=== PATIENT | male | born 1995 | race African-American/Black ===

== ENCOUNTER 2019-05-26 15:52 | Emergency (ER) | payer SELFPAY ==
--- NOTE | ~2019-05-26 | XR_ITS ---
EXAMINATION: XR abdomen obstructive series DATE: 05/26/2019 16:45 INDICATION: Lumen pain, fever and constipation TECHNIQUE: Supine and upright views of the abdomen. FINDINGS: No prior studies for comparison. The visualized lung parenchyma is normal.. There is a nonobstructive bowel gas pattern. Gas and stool are seen throughout the colon to the level of the rectum. There is no free air. IMPRESSION: 1. No acute abdominal abnormality. Reviewed, dictated and finalized at location [facility]
[2019-05-26 15:57] VITALS: BP 165/79; PULSE 79; RESP 16; TEMP 37.3; O2SAT 100
--- NOTE | 2019-05-26 16:34 | ED.ABDPAIN ---
HPI - Abdominal Pain General Chief Complaint: Abdominal Pain Stated Complaint: abdominal pain/hot/cold Time Seen by Provider: 05/26/19 16:28 Source: patient and RN notes reviewed Mode of arrival: ambulatory Limitations: no limitations History of Present Illness HPI narrative: Patient presents today complaining of mid abdominal pain. Reports he became sick 5 days ago with nausea and fever. Both of these symptoms have completely resolved. 4 days ago, patient started experiencing upper/mid abdominal pain that comes and goes, as well as some constipation. He has had 1 stool in the last 4 days and it was at least 2 days ago. He denies any blood or mucus in the stool. He currently rates his abdominal pain 5/10 and has been taking NyQuil, Tums, and ibuprofen. MD elicited complaint: abdominal pain Related Data Allergies Allergy/AdvReac Type Severity Reaction Status Date / Time No Known Allergies Allergy Mild Verified 05/09/12 10:41 Review of Systems Review of Systems: Narrative: CONSTITUTIONAL: Denies body aches, fever, chills, or sweats. EYES: Denies visual changes, redness, or discharge. ENT: Denies rhinorrhea, congestion, sore throat, or otalgia. CARDIOVASCULAR: Denies chest pain, palpitations, or edema. RESPIRATORY: Denies cough or dyspnea. GASTROINTESTINAL: Denies nausea, vomiting, or diarrhea.+ Abdominal pain, constipation GENITOURINARY: Denies dysuria or hematuria. SKIN: Denies rash, itching, or wounds. MUSCULOSKELETAL: Denies back pain, joint pain, or myalgia. NEUROLOGIC: Denies headache, numbness, tingling, or weakness. PSYCH: Denies depression or anxiety. [facility] Social History Social History Alcohol intake: never Comments At time of signature, I have reviewed and agree with nursing past medical, surgical, social and family history unless otherwise noted. Please see nursing chart for further information. There is no relevant family history pertinent to the presenting complaint Exam Narrative: Exam Narrative: GENERAL: Well-appearing, well-nourished, and in no acute distress. HEAD: Normocephalic, atraumatic. EYES: EOMI. No redness or drainage. Conjunctivae normal. ENT: Mucous membranes pink and moist. NECK: Normal AROM. Supple. No lymphadenopathy. CHEST: No respiratory distress. Clear to auscultation. HEART: Regular rate and rhythm. No murmur appreciated. Normal peripheral pulses. ABDOMEN: Soft, nondistended, normal active bowel sounds.+ Periumbilical tenderness, left lower quadrant tenderness MUSCULOSKELETAL: No bony tenderness. EXTREMITIES: Normal range of motion. No edema. SKIN: Warm, dry, no rash. NEURO: No focal deficits. Alert and oriented x3. Gait steady. PSYCH: Normal affect. No signs of depression or anxiety. Course Vital Signs Vital signs: Vital Signs Temperature 99.2 F 05/26/19 15:57 Pulse Rate 79 05/26/19 15:57 Respiratory Rate 16 05/26/19 15:57 Blood Pressure 165/79 H 05/26/19 15:57 Pulse Oximetry 100 05/26/19 15:57 Temperature 99.2 F 05/26/19 15:57 Pulse Rate 79 05/26/19 15:57 Respiratory Rate 16 05/26/19 15:57 Blood Pressure 165/79 H 05/26/19 15:57 Pulse Oximetry 100 05/26/19 15:57 Reviewed. Pt has been instructed to follow up with his PCP regarding his elevated blood pressure today. MDM - Abdominal Pain Differential Diagnosis Differential diagnosis: Likely abdominal pain, constipation, diverticulitis and other (Gastritis) Imaging Data Radiologist's impression: ITS Impressions Abdomen X-Ray 05/26/19 16:47 IMPRESSION: 1. No acute abdominal abnormality. The visualized lung parenchyma is normal. There is a nonobstructive bowel gas pattern. Gas and stool are seen throughout the colon to the level of the rectum. There is no free air. Critical Care Time Critical Care Time Critical Care Time: No Discharge Plan Discharge Clinical Impression: Constipation Qualifiers: Constipation type: unspecified constipation type Qualif
== END 2019-05-26 17:21 | disposition home or self-care (01) ==
PROVIDERS: Emergency Provider Nurse Practitioner
DX: K59.00 Constipation, unspecified (principal)
CPT/HCPCS: 74019; 99203; G0463

== ENCOUNTER 2025-04-17 13:41 | Emergency (ER) | payer SELFPAY ==
--- NOTE | 2025-04-17 13:42 | ED.LOWEXIN ---
HPI - Extremity Injury (Lower) General Chief Complaint: Extremity Injury, Lower Stated Complaint: L Foot Pain Time Seen by Provider: 04/17/25 13:42 Source: patient Mode of arrival: ambulatory Limitations: no limitations History of Present Illness HPI Narrative: Patient is a 29-year-old male who presents with multiple complaints. Patient states over the past month he has had upper respiratory symptoms with intermittent shortness of breath and chest heaviness when lying down. Patient states that has improved today. Patient also has issues with constipation, abdominal pain and bloating. Today he has sharp stabbing abdominal pain that relieved when having diarrhea x2. Patient also reports significant swelling to left ankle that he noticed when putting his shoes on. 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 Denies any significant pain the ankles or calfs. Patient reports he wears mid calf high socks and has noticed an indention. patient has not seen a doctor in several months to year. denies any chest pain or shortness of breath at this time. Related Data Home Medications ?Medication ?Instructions ?Recorded ?Confirmed ?Last Taken ?Type valacyclovir 500 mg tablet mg 04/17/25 Unknown History Allergies Allergy/AdvReac Type Severity Reaction Status Date / Time No Known Allergies Allergy Mild Verified 05/09/12 10:41 Review of Systems Review of Systems: All systems reviewed & are unremarkable except as noted in HPI and below Constitutional: Constitutional: Denies body ache(s), Denies chills, Denies fatigue, Denies fever(s), Denies headache(s), Denies malaise and Denies weakness Eyes: Eyes: Denies blurry vision, Denies irritation and Denies loss of vision ENT: Denies otalgia, Denies headache(s), Reports nasal congestion, Denies nasal discharge, Denies sinus pain and Denies sore throat Cardiovascular: Cardiovascular: Denies chest pain, Denies irregular heart rhythm and Denies dyspnea Respiratory: Respiratory: Reports cough and Denies dyspnea Gastrointestinal: Gastrointestinal: Reports abdominal pain, Denies melena, Denies hematochezia, Reports diarrhea, Denies nausea and Denies vomiting Musculoskeletal: Musculoskeletal: Denies back pain, Denies myalgias, Denies arthralgias and Reports joint swelling Integumentary/Breasts: Skin/Breast: Denies pruritus and Denies rash Neurologic: Denies headache(s), Denies loss of vision and Denies weakness Psychiatric: Psychiatric: Reports no additional psychiatric complaints Endocrine: Endocrine: Denies fatigue PMFSH Social History Social History Alcohol intake: never Comments At time of signature, agree with nursing past medical, surgical, social and family history. There is no relevant family history pertinent to the presenting complaint. Exam Const: General: cooperative, healthy appearing, comfortable, no acute distress and well nourished Nutritional Appearance: well nourished Orientation/consciousness: patient oriented x3 Limitations: no limitations HENMT: Head: normal to inspection, normocephalic and atraumatic Ears: hearing grossly normal bilaterally and external ears normal Face/Nose/Sinus: Normal external nose present, normal facial exam and face symmetric Face and sinus: normal facial exam and face symmetric Mouth: Yes lip normal Eyes: General: appearance normal, both eyes and all related structures Alignment and Position: alignment normal and position normal Periorbital: periorbital findings normal Eyelids: eyelids normal Pupils: Equal, round and reactive pupils present EOM: EOMs intact bilaterally Neck: Neck: normal visual inspection, full ROM and supple Chest: Chest palpation & inspection: normal inspection of the chest Resp: Effort & Inspection: normal respiratory effort and able to speak in complete sentences Auscultation: clear to auscultation bilaterally Cardio: Rate: tachycardic Rhythm: regular rhythm Heart sounds: S1 normal heart sound present and S2 normal heart sound present GI: Inspection: normal to inspection GI Palp: No abdominal tenderness and Yes Soft to palpation Skin: General skin exam: normal color and no rashes or lesions noted Neuro: General: patient oriented x3 and moves all extremities Cranial nerves: Yes Equal, round and reactive pupils present Speech: normal speech Gait exam (Neuro): Normal gait present Extrem: General: normal to inspection, full ROM and no edema Right lower extremity: lower leg Details: pitting edema Details: 1+, ankle Details: edema Details: pitting and 1+ and foot Details: normal capillary refill, toes with normal ROM, edema and vascular exam Details: dorsalis pedis pulse present Left lower extremity: lower leg Details: pitting edema Details: 3+, ankle Details: pitting edema Details: pitting and 3+ and normal ROM; no tenderness and foot Details: normal capillary refill, toes with normal ROM, edema and vascular exam Details: dorsalis pedis pulse present and normal capillary refill; no tenderness Psych: Appearance: grossly normal and well kempt Mental Status: mental status grossly normal Speech and movement: Normal speech and movement present Affect: normal affect Attitude: cooperative Thought process: Normal thought process present Course Course Emergency Course: patient being transferred to [facility] for further workup and evaluation. Patient needs lab work and potential imaging to determine cause of significant lower extremity edema Portions of this record may have been created with voice recognition software Level of Care: Express Care Visit Vital Signs Vital signs: Vital Signs Temperature 36.3 C L 04/17/25 13:51 Pulse Rate 124 H 04/17/25 13:51 Respiratory Rate 16 04/17/25 13:51 Blood Pressure 140/106 H 04/17/25 13:51 Pulse Oximetry 100 04/17/25 13:51 Temperature 36.3 C L 04/17/25 13:51 Pulse Rate 124 H 04/17/25 13:51 Respiratory Rate 16 04/17/25 13:51 Blood Pressure 140/106 H 04/17/25 13:51 Pulse Oximetry 100 04/17/25 13:51 Transfer Transfered to: [place] Transportation: Other ( private auto) Transfer rationale: patient being transferred to [facility] for further workup and evaluation. Patient needs lab work and potential imaging to determine cause of significant lower extremity edema Accepting physician: Naomy MCKEON [facility] MDM Narrative Medical decision making narrative: patient being transferred to [facility] for further workup and evaluation. Patient needs lab work and potential imaging to determine cause of significant lower extremity edema discussed the option of following up with PCP the patient is not likely to get in for at least a week and patient would like to figure out what is going on today. Night med agreement as patient has abnormal vital signs and concerning amount of edema for patient age Differential Diagnosis Differential Diagnosis: electrolyte imbalance, infection, fluid overload, less likely hypertensive crisis Medical Records I have reviewed the following patient records and this information was taken into consideration when formulating the assessment and plan.: previous clinic visits Discharge Plan Discharge Clinical Impression: Bilateral edema of lower extremity, Abdominal pain Patient Disposition: Acute Care Hospital Condition: Stable Patient Language: Luxembourger Prescriptions: No Action valacyclovir 500 mg tablet Follow-up/Referrals: UNKNOWN,DOCTOR [Non-Staff] Time of Disposition: 14:24
[2025-04-17 13:51] VITALS: BP 140/106; PULSE 124; RESP 16; TEMP 36.3; O2SAT 100
== END 2025-04-17 14:29 | disposition short-term general hospital (02) ==
PROVIDERS: Emergency Provider Nurse Practitioner Family
DX: R60.0 Localized edema (principal); R10.9 Unspecified abdominal pain
CPT/HCPCS: 99212; G0463

== ENCOUNTER 2025-04-17 14:45 | Inpatient (IN) | payer SELFPAY ==
[2025-04-17] VITALS (8 sets, daily range): BP systolic 138–142; BP diastolic 88–107; PULSE 109–131; RESP 16–24; TEMP 36.4–36.6; O2SAT 94–100; BMI 21.2
--- NOTE | ~2025-04-17 | US_ITS ---
EXAMINATION: US venous doppler [facility] DATE: 04/17/2025 18:05 INDICATION: Lower extremity swelling. TECHNIQUE: Grayscale ultrasound images without and with compression and Doppler ultrasound images of the bilateral lower extremity veins were obtained. COMPARISON: None. FINDINGS: The visualized portions of right common femoral vein, profunda (deep) femoral vein, femoral vein, popliteal vein, peroneal veins, posterior tibial veins, and greater saphenous vein outflow are patent. The visualized portions of left common femoral vein, profunda femoral vein, femoral vein, popliteal vein, peroneal veins, posterior tibial veins, and greater saphenous vein outflow are patent. IMPRESSION: 1. No deep venous thrombosis of major veins of both lower extremities.. Reviewed, dictated and finalized at location T. ONS MECHANIC
--- NOTE | ~2025-04-17 | XR_ITS ---
EXAMINATION: XR chest 2V DATE: 04/17/2025 17:38 INDICATION: Lower extremity edema. TECHNIQUE: Frontal and lateral views of the chest were obtained. COMPARISON: None. FINDINGS: Mild cardiomegaly. Lungs are clear of acute processes. IMPRESSION: 1. No acute findings of the lungs. Cardiomegaly. Reviewed, dictated and finalized at location T. IDENT & CEO
--- NOTE | ~2025-04-17 | CT_ITS ---
EXAMINATION: CTA chest PE abdomen pel DATE: 04/17/2025 18:38 INDICATION: 29-year-old with lower extremity edema. Short of breath. Tachycardia. Abdominal pain. TECHNIQUE: Computed tomography angiography (CTA) of the chest was performed with 100 mL Omnipaque-350 intravenous contrast timed to evaluate the pulmonary arteries. Coronal maximum intensity projection 3D-reconstructions were created by the technologist. Computed tomography (CT) of the abdomen and pelvis was performed with intravenous contrast. Automated exposure control and iterative reconstruction technique were employed. The dose-length product was 420.51 mGy-cm. COMPARISON: Chest x-ray and venous Doppler study dated 04/17/2025. Abdomen series dated 05/26/2019. FINDINGS: Within the chest, no evidence of pulmonary emboli. However, cardiomegaly is noted with evidence of large right pleural effusion. Elevated right coronary pressure with contrast reflux into hepatic veins. Below the diaphragm, mild hepatomegaly. Free fluid in the peritoneal cavity. No evidence of bowel obstruction. IMPRESSION: 1. No evidence of pulmonary embolus. 2. Cardiomegaly with significant congestive heart failure. Large right pleural effusion. Significant ascites. Reviewed, dictated and finalized at location T. OTIONS EXECUTIVE
--- OUTSIDE RECORDS SUMMARY | 2025-04-17 14:47 | XMS_ITS ---
Author Organization Unknown ENCOUNTERS Encounter Performer Location Date Diagnosis Diagnosis Status Pre Admit [place] [id number] [place] [id number] *Note: Encounters from your own facility or health system may be excluded. Allergies, Adverse Reactions, Alerts Allergen Type Severity Identification Date Medications Name Date Quantity Days Supplied GPI Number
--- NOTE | 2025-04-17 16:43 | ECG_ITS ---
Test Date: 2025-04-17 16:47:55 Measurements Intervals [place] Rate: 128 P: 84 MN: 130 QRS: 58 QRSD: 85 T: 255 QT: 305 QTc: 446 Interpretive Statements SINUS TACHYCARDIA DELAYED PRECORDIAL R/S TRANSITION ST-T WAVE ABNORMALITY IN ANTEROLAT/INF LEADS- CONSIDER ISCHEMIA BASELINE ARTIFACT- I, III, AVL ABNORMAL ECG No previous ECG available for comparison Electronically Signed On 04-17-2025 17:19:56 [employer] by Brandyn Hamm D.O.
[2025-04-17 17:12] LABS: Hematocrit 40.7 % (42.0-52.0); Hemoglobin 13.5 g/dL (14.0-18.0); Immature Granulocyte Percent A 0.3 % (0-0.5); Lymphocytes Absolute Auto 1.86 K/mm3 (0.9-3.2); Mean Corpuscular HGB Conc 33.2 g/dl (32-36); Mean Corpuscular Hemoglobin 33.0 pg (26-34); Mean Corpuscular Volume 99.5 fl (80-100); Nucleated Red Blood Cells Absolute Auto 0.000 K/mm3 (0.0-0.012); Nucleated Red Blood Cells Perc 0.0 % (0.0-0.2); Platelet Count Result 305 k/mm3 (150-375); Red Blood Count 4.09 M/mm3 (4.6-6.20); White Blood Count 3.4 K/mm3 (4.5-10.0)
[2025-04-17 17:23] LABS: Alanine Aminotransferase 31 U/L (6-50); Albumin Level 4.0 g/dL (3.5-5.1); Alkaline Phosphatase 135 U/L (38-126); Anion Gap 8 mmol/L (4-12); Aspartate Amino Transferase 45 U/L (17-59); Bilirubin,Total 1.8 mg/dL (0.2-1.3); Blood Urea Nitrogen 24 mg/dL (9-20); Calcium 9.4 mg/dL (8.4-10.2); Carbon Dioxide 23 mmol/L (22-30); Chloride 106 mmol/L (98-107); Estimated CRCL calculation 73 ml/min; Estimated Glomerular Filt Rate 58; Glucose 162 mg/dL (65-110); Potassium 3.9 mmol/L (3.4-5.0); Sodium 137 mmol/L (137-145); Total Protein 6.9 g/dL (6.3-8.2)
[2025-04-17 17:25] LABS: INR 1.3; Prothrombin Time 16.2 Seconds (11.1-14.7)
[2025-04-17 17:27] LABS: Partial Thromboplastin Time 36.7 Seconds (22.3-36.8)
[2025-04-17 17:32] LABS: NT Pro B Type Natriuretic Pept 7370 pg/mL (19.9-100)
--- NOTE | 2025-04-17 17:35 | ED.EXTPRO ---
HPI - Extremity Problem General Chief complaint: Extremity Problem,Nontraumatic <Naomy Gibson PA-C - Last Filed: 04/17/25 21:46> Stated complaint: leg swelling <Naomy Gibson PA-C - Last Filed: 04/17/25 21:46> Time Seen by Provider: 04/17/25 16:43 <Naomy Gibson PA-C - Last Filed: 04/17/25 21:46> Source: patient <Naomy Gibson PA-C - Last Filed: 04/17/25 21:46> Mode of arrival: ambulatory <Naomy Gibson PA-C - Last Filed: 04/17/25 21:46> Limitations: no limitations <Naomy Gibson PA-C - Last Filed: 04/17/25 21:46> History of Present Illness HPI Narrative: This is a 29-year-old male that presents to the emergency department for worsening shortness of breath. Reports he had a respiratory infection about a month ago. Since then he has continued to be short of breath has had worsening lower extremity edema. Reports he has had some abdominal discomfort and bloating. Denies fevers. <Naomy Gibson PA-C - Last Filed: 04/17/25 21:46> Related Data Home medications: Home Medications ?Medication ?Instructions ?Recorded ?Confirmed ?Last Taken ?Type valacyclovir 500 mg tablet 500 mg PO DAILY 04/17/25 04/17/25 04/17/25 History <Naomy Gibson PA-C - Last Filed: 04/17/25 21:46> Allergies/Adverse reactions: Allergies Allergy/AdvReac Type Severity Reaction Status Date / Time No Known Allergies Allergy Mild Verified 05/09/12 10:41 <Naomy Gibson PA-C - Last Filed: 04/17/25 21:46> Review of Systems Review of Systems: All systems reviewed & are unremarkable except as noted in HPI and below <Naomy Gibson PA-C - Last Filed: 04/17/25 21:46> PMFSH Past Medical History Medical History: Medical History (Updated 04/18/25 @ 08:01 by Sonam Shine DO) Genital HSV Alcohol use disorder, mild, abuse Anxiety <Naomy Gibson PA-C - Last Filed: 04/17/25 21:46> Surgical History Surgical History: Surgical History (Updated 04/18/25 @ 08:01 by Sonam Shine DO) No significant past surgical history <Naomy Gibson PA-C - Last Filed: 04/17/25 21:46> Family History Family History: Family History (Updated 04/18/25 @ 08:02 by Sonam Shine DO) Other Adopted Unknown family medical history <Naomy Gibson PA-C - Last Filed: 04/17/25 21:46> Social History Social History: Social History (Updated 04/18/25 @ 08:04 by Sonam Shine DO) Social History: The patient is single and lives with his parents. 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 He drinks 6 mixed drinks 2 or 3 times a week. He denies illicit substance use. He works in the restaurant industry. Code status: Full code Surrogate decision maker: Mother and Father. Smoking status: Former smoker Tobacco type: cigarettes Alcohol intake: current Substance use type: does not use Lack of Transportation: No Lack of Food: Never True Current Housing: I Have Housing Concerned About Future Housing: No Difficulty Paying Gas/Electric Bills: No Difficulty Paying for Meds: No Currently Unemployed: No Education: High School Diploma/GED Difficulty w/ Childcare or Family Care: No Spiritual care concerns: No <Naomy Gibson PA-C - Last Filed: 04/17/25 21:46> Exam Narrative: GENERAL: Well-appearing, well-nourished, and in no acute distress. HEAD: Normocephalic, atraumatic. EYES: EOMI. ENT: Nares clear, no rhinorrhea or epistaxis. Mucous membranes moist. Oropharynx without tonsillar hypertrophy exudate or other lesions. NECK: Supple. No adenopathy or masses. CHEST: No respiratory distress. Rales in the lower lobes. No wheezes or rhonchi HEART: Regular rate and rhythm. No murmur heard. Normal peripheral pulses. ABDOMEN: Soft, nontender, nondistended, normal active bowel sounds. EXTREMITIES: Normal range of motion. 1+ pitting edema at the ankles SKIN: Warm, dry, no rash. NEURO: No focal deficits. Alert and oriented x3. PSYCH: Normal mood and affect <Naomy Gibson PA-C - Last Filed: 04/17/25 21:46> Course AEROSPACE PROJECT MANAGER/PA Physician Supervision This visit was performed by both a physician and an Advanced Practice Provider. I performed all aspects of the Medical Decision Making as documented. <Bert Feng DO - Last Filed: 04/18/25 12:00> Consultations Cardiology: I have discussed the care of this patient with the following provider: Dr Chaves <Naomy Gibson PA-C - Last Filed: 04/17/25 21:46> Vital Signs Vital signs: Vital Signs Temperature 97.6 F 04/17/25 14:53 Pulse Rate 112 H 04/17/25 14:53 Respiratory Rate 20 04/17/25 14:53 Blood Pressure 138/107 H 04/17/25 14:53 Pulse Oximetry 100 04/17/25 14:53 Oxygen Delivery Room Air 04/17/25 14:53 Temperature 97.6 F 04/18/25 05:54 Pulse Rate 115 H 04/18/25 08:00 Respiratory Rate 16 04/18/25 05:54 Blood Pressure 139/98 H 04/18/25 05:54 Pulse Oximetry 98 04/18/25 05:54 Oxygen Delivery Room Air 04/18/25 08:00 <Naomy Gibson PA-C - Last Filed: 04/17/25 21:46> Vital Signs Temperature 97.6 F 04/17/25 14:53 Pulse Rate 112 H 04/17/25 14:53 Respiratory Rate 20 04/17/25 14:53 Blood Pressure 138/107 H 04/17/25 14:53 Pulse Oximetry 100 04/17/25 14:53 Oxygen Delivery Room Air 04/17/25 14:53 Temperature 97.6 F 04/18/25 05:54 Pulse Rate 115 H 04/18/25 08:00 Respiratory Rate 16 04/18/25 05:54 Blood Pressure 139/98 H 04/18/25 05:54 Pulse Oximetry 98 04/18/25 05:54 Oxygen Delivery Room Air 04/18/25 08:00 <Bert Feng DO - Last Filed: 04/18/25 12:00> MDM MDM Narrative Medical decision making narrative: Patient presents emergency department for shortness of breath, lower extremity edema. Oxygen saturation is normal on room air. Rales noted at the lung bases. Pitting edema to the ankles. CBC without leukocytosis. Metabolic panel with creatinine of 1.43. BNP 7370. Troponin is mildly elevated, but flat. CTA chest PE with abdomen pelvis obtained. No PE. Cardiomegaly with significant congestive heart failure. Large right pleural effusion. Significant ascites. Lower extremity venous Doppler without evidence of DVT. Spoke with cardiology who will consult. Patient will be admitted to the hospital service for further evaluation/management <Naomy Gibson PA-C - Last Filed: 04/17/25 21:46> Differential Diagnosis Differential Diagnosis: CHF, acute kidney injury, PE, pneumonia, DVT <Naomy Gibson PA-C - Last Filed: 04/17/25 21:46> Lab Data [facility] Lab Attestation statement: I personally reviewed the patient's lab results. <Naomy Gibson PA-C - Last Filed: 04/17/25 21:46> Result diagrams: 04/18/25 05:13 04/18/25 05:12 <Naomy Gibson PA-C - Last Filed: 04/17/25 21:46> Labs: Lab Results 04/17/25 04/17/25 04/17/25 Range/Units 17:06 17:07 20:06 WBC 3.4 L (4.5-10.0) K/mm3 RBC 4.09 L (4.6-6.20) M/mm3 Hgb 13.5 L (14.0-18.0) g/dL Hct 40.7 L (42.0-52.0) % MCV 99.5 (80-100) fl MCH 33.0 (26-34) pg MCHC 33.2 (32-36) g/dl RDW 13.0 (11.5-14.5) % Plt Count 305 (150-375) k/mm3 MPV 10.4 (7.4-10.4) fl Immature Gran % (Auto) 0.3 (0-0.5) % Neut % (Auto) 38.0 L (45.5-73.1) % Lymph % (Auto) 55.2 H (18.3-44.2) % Perry % (Auto) 5.0 (2.6-8.5) % Eos % (Auto) 0.9 (0-4.4) % Baso % (Auto) 0.6 (0.2-1.2) % Lymph # (Auto) 1.86 (0.9-3.2) K/mm3 Perry # (Auto) 0.2 (0.1-0.6) K/mm3 Eos # (Auto) 0.0 (0-0.3) K/mm3 Baso # (Auto) 0.0 (0.0-0.1) K/mm3 Abs Immat Gran (auto) 0.01 (0.00-0.031) K/mm3 Absolute Neuts (auto) 1.3 (1.3-6.7) K/mm3 Absolute Nucleated RBC 0.000 (0.0-0.012) K/mm3 Nucleated RBC % 0.0 (0.0-0.2) % ESR 8 (0-20) mm/hr PT 16.2 H (11.1-14.7) Seconds INR 1.3 APTT 36.7 (22.3-36.8) Seconds Sodium 137 (137-145) mmol/L Potassium 3.9 (3.4-5.0) mmol/L Chloride 106 (98-107) mmol/L Carbon Dioxide 23 (22-30) mmol/L Anion Gap 8 (4-12) mmol/L BUN 24 H (9-20) mg/dL Creatinine 1.43 H (0.7-1.3) mg/dL Estim Creat Clear Calc 73 ml/min Estimated GFR 58 L (59 - ) Glucose 162 H (65-110) mg/dL Calcium 9.4 (8.4-10.2) mg/dL Total Bilirubin 1.8 H (0.2-1.3) mg/dL AST 45 (17-59) U/L ALT 31 (6-50) U/L Alkaline Phosphatase 135 H (38-126) U/L Troponin I 0.037 H* 0.038 H* (0.000-0.034) ng/mL NT-Pro-B Natriuret Pep 7370 H (19.9-100) pg/mL Total Protein 6.9 (6.3-8.2) g/dL Albumin 4.0 (3.5-5.1) g/dL Influenza A (RT-PCR) Negative (Negative) Influenza B (RT-PCR) Negative (Negative) SARS-CoV-2 RNA (RT-PCR) Negative (Negative) <Naomy Gibson PA-C - Last Filed: 04/17/25 21:46> Lab Results 04/17/25 04/17/25 04/17/25 Range/Units 17:06 17:07 20:06 WBC 3.4 L (4.5-10.0) K/mm3 RBC 4.09 L (4.6-6.20) M/mm3 Hgb 13.5 L (14.0-18.0) g/dL Hct 40.7 L (42.0-52.0) % MCV 99.5 (80-100) fl MCH 33.0 (26-34) pg MCHC 33.2 (32-36) g/dl RDW 13.0 (11.5-14.5) % Plt Count 305 (150-375) k/mm3 MPV 10.4 (7.4-10.4) fl Immature Gran % (Auto) 0.3 (0-0.5) % Neut % (Auto) 38.0 L (45.5-73.1) % Lymph % (Auto) 55.2 H (18.3-44.2) % Perry % (Auto) 5.0 (2.6-8.5) % Eos % (Auto) 0.9 (0-4.4) % Baso % (Auto) 0.6 (0.2-1.2) % Lymph # (Auto) 1.86 (0.9-3.2) K/mm3 Perry # (Auto) 0.2 (0.1-0.6) K/mm3 Eos # (Auto) 0.0 (0-0.3) K/mm3 Baso # (Auto) 0.0 (0.0-0.1) K/mm3 Abs Immat Gran (auto) 0.01 (0.00-0.031) K/mm3 Absolute Neuts (auto) 1.3 (1.3-6.7) K/mm3 Absolute Nucleated RBC 0.000 (0.0-0.012) K/mm3 Nucleated RBC % 0.0 (0.0-0.2) % ESR 8 (0-20) mm/hr PT 16.2 H (11.1-14.7) Seconds INR 1.3 APTT 36.7 (22.3-36.8) Seconds Sodium 137 (137-145) mmol/L Potassium 3.9 (3.4-5.0) mmol/L Chloride 106 (98-107) mmol/L Carbon Dioxide 23 (22-30) mmol/L Anion Gap 8 (4-12) mmol/L BUN 24 H (9-20) mg/dL Creatinine 1.43 H (0.7-1.3) mg/dL Estim Creat Clear Calc 73 ml/min Estimated GFR 58 L (59 - ) Glucose 162 H (65-110) mg/dL Calcium 9.4 (8.4-10.2) mg/dL Total Bilirubin 1.8 H (0.2-1.3) mg/dL AST 45 (17-59) U/L ALT 31 (6-50) U/L Alkaline Phosphatase 135 H (38-126) U/L Troponin I 0.037 H* 0.038 H* (0.000-0.034) ng/mL NT-Pro-B Natriuret Pep 7370 H (19.9-100) pg/mL Total Protein 6.9 (6.3-8.2) g/dL Albumin 4.0 (3.5-5.1) g/dL Influenza A (RT-PCR) Negative (Negative) Influenza B (RT-PCR) Negative (Negative) SARS-CoV-2 RNA (RT-PCR) Negative (Negative) <Bert Feng DO - Last Filed: 04/18/25 12:00> Imaging Data Radiologist's impression: ITS Impressions Chest X-Ray 04/17/25 17:40 IMPRESSION: 1. No acute findings of the lungs. Cardiomegaly. Venous Doppler Study 04/17/25 18:09 IMPRESSION: 1. No deep venous thrombosis of major veins of both lower extremities.. Chest/Abdomen/Pelvis CTA 04/17/25 18:39 IMPRESSION: 1. No evidence of pulmonary embolus. 2. Cardiomegaly with significant congestive heart failure. Large right pleural effusion. Significant ascites. <Naomy Gibson PA-C - Last Filed: 04/17/25 21:46> ITS Impressions Chest X-Ray 04/17/25 17:40 IMPRESSION: 1. No acute findings of the lungs. Cardiomegaly. Venous Doppler Study 04/17/25 18:09 IMPRESSION: 1. No deep venous thrombosis of major veins of both lower extremities.. Chest/Abdomen/Pelvis CTA 04/17/25 18:39 IMPRESSION: 1. No evidence of pulmonary embolus. 2. Cardiomegaly with significant congestive heart failure. Large right pleural effusion. Significant ascites. <Bert Feng DO - Last Filed: 04/18/25 12:00> ECG Data EKG #1: ECG completion date: 04/17/25 <Naomy Gibson PA-C - Last Filed: 04/17/25 21:46> normal rate, sinus rhythm, non-specific ST changes (T wave inversions) and normal QT <Naomy Gibson PA-C - Last Filed: 04/17/25 21:46> Critical Care Time Critical Care Time Critical Care Time: Yes <Naomy Gibson PA-C - Last Filed: 04/17/25 21:46> Time Type: Intermittent <Naomy Gibson PA-C - Last Filed: 04/17/25 21:46> Initial evaluation, discuss w/ involved parties, attempting to gather old records: 10 minutes <Naomy Gibson PA-C - Last Filed: 04/17/25 21:46> Documenting medical record: 5 minutes <Naomy Gibson PA-C - Last Filed: 04/17/25 21:46> Review of results (EKG's, labs, imaging): 5 minutes <Naomy Gibson PA-C - Last Filed: 04/17/25 21:46> Serial repeat bedside evaluation: 10 minutes <Naomy Gibson PA-C - Last Filed: 04/17/25 21:46> Discussing case with multiple memebers of the care team and consultants: 5 minutes <Naomy Gibson PA-C - Last Filed: 04/17/25 21:46> Total Critical Care Time: 35 <Naomy Gibson PA-C - Last Filed: 12/21/25 21:46> 35 <Bert Feng DO - Last Filed: 04/18/25 12:00> Discharge Plan Discharge Clinical Impression: Acute kidney injury CHF (congestive heart failure) Qualifiers: Heart failure type: other Qualified Code(s): I50.9 - Heart failure, unspecified Ascites Qualifiers: Ascites type: other type Qualified Code(s): R18.8 - Other ascites <Naomy Gibson PA-C - Last Filed: 04/17/25 21:46> Patient Disposition: Still a Patient <Naomy Gibson PA-C - Last Filed: 04/17/25 21:46> Condition: Serious <Naomy Gibson PA-C - Last Filed: 04/17/25 21:46>
[2025-04-17 17:49] LABS: Influenza A QL RT-PCR Negative (Negative); Influenza B QL RT-PCR Negative (Negative); SARS-CoV-2 RNA PCR Negative (Negative)
[2025-04-17 18:02] LABS: Troponin I 0.037 ng/mL (0.000-0.034)
[2025-04-17] MEDS: FUROSEMIDE INJ 40 MG/4 ML VIAL IV PUSH (18:56)
--- NOTE | 2025-04-17 19:56 | ECG_ITS ---
Test Date: 2025-04-17 20:01:26 Measurements Intervals [place] Rate: 119 P: 86 AR: 127 QRS: 52 QRSD: 89 T: 259 QT: 332 QTc: 468 Interpretive Statements SINUS TACHYCARDIA WITH OCCASIONAL VENTRICULAR PREMATURE COMPLEXES LEFT ATRIAL ENLARGEMENT DELAYED PRECORDIAL R/S TRANSITION ST-T WAVE ABNORMALITY IN ANTEROLAT/INF LEADS- CONSIDER ISCHEMIA ABNORMAL ECG Compared to ECG 04/17/2025 16:47:55 NO SIGNIFICANT CHANGE Electronically Signed On 04-18-2025 06:50:38 WATER POLLUTION SPECIALIST by Brandyn Hamm D.O.
[2025-04-17 20:39] LABS: Troponin I 0.038 ng/mL (0.000-0.034)
[2025-04-17 22:00] LABS: Cannabinoid Screen Urine Negative (Negative)
--- NOTE | 2025-04-17 22:05 | WPCEDHO ---
ED Hand Off Checklist All vitals saved: Yes IV Site documented: Yes All med administrations documented: Yes Triage Note Triage Note Patient presents with bilateral 04/17/25 14:53 leg swelling for last couple days . slight sob. denies cardiac issues Allergies No Known Allergies Allergy (Mild, Verified 05/09/12 10:41) Administered/Completed Medications Discontinued Medications Furosemide (Furosemide Inj 40 Mg/4 Ml Vial) 40 mg IV PUSH ONCE STA Stop: 04/17/25 18:51 Last Admin: 04/17/25 18:56 Dose: 40 mg Documented By: ECS Interventions/Assessments IV / Saline Lock, Insert Start: 04/17/25 16:47 Freq: ONCE Status: Active Protocol: Document 04/17/25 18:02 ECS (Rec: 04/17/25 18:02 ECS [id number]) IV Assessment Peripheral Access Left Antecubital IV Catheter Access Initiated IV Insertion Date 04/17/25 IV Insertion Time 18:02 Catheter Gauge 20 IV Insertion 1 Attempts IV Site Assessment WNL IV Care and WNL Maintenance Last Vital Signs Temperature 97.8 F 04/17/25 22:04 Pulse Rate 120 H 04/17/25 22:04 Respiratory Rate 20 04/17/25 22:04 Pulse Oximetry 100 04/17/25 22:04 Blood Pressure 141/88 H 04/17/25 22:04 Blood Pressure Mean 105 04/17/25 22:04 Blood Pressure Position Supine 04/17/25 22:04 Oxygen Delivery Room Air 04/17/25 14:53 Weight 75 kg 04/17/25 14:53 Last Result - Abnormals Only WBC 3.4 K/mm3 (4.5-10.0) L 04/17/25 17:07 RBC 4.09 M/mm3 (4.6-6.20) L 04/17/25 17:07 Hgb 13.5 g/dL (14.0-18.0) L 04/17/25 17:07 Hct 40.7 % (42.0-52.0) L 04/17/25 17:07 Neut % (Auto) 38.0 % (45.5-73.1) L 04/17/25 17:07 Lymph % (Auto) 55.2 % (18.3-44.2) H 04/17/25 17:07 PT 16.2 Seconds (11.1-14.7) H 04/17/25 17:07 BUN 24 mg/dL (9-20) H 04/17/25 17:07 Creatinine 1.43 mg/dL (0.7-1.3) H 04/17/25 17:07 Estimated GFR 58 (59-) L 04/17/25 17:07 Glucose 162 mg/dL (65-110) H 04/17/25 17:07 Total Bilirubin 1.8 mg/dL (0.2-1.3) H 04/17/25 17:07 Alkaline Phosphatase 135 U/L (38-126) H 04/17/25 17:07 Troponin I 0.038 ng/mL (0.000-0.034) H* 04/17/25 20:06 NT-Pro-B Natriuret Pep 7370 pg/mL (19.9-100) H 04/17/25 17:07 Most Recent Suicide Severity Rating Suicide Severity Rating NO RISK INDICATED 04/17/25 14:53
--- NOTE | 2025-04-17 22:54 | ADMGEN ---
This patient, Dawson Boyce, was admitted to 2 Medical Room 259-. Patient/family oriented to hospital policies and general routines including ID bracelet, bed and alarms, visiting hours, pain management, procedures, bathroom and other care routines, personal items, smoking policy, room service/diet, and visiting hours. Information on how to activate the Rapid Response Team has been discussed. Patient/Family are encouraged to report perceived risks to care and to ask questions if they do not understand what they are told or what they should do.
[2025-04-17 23:49] LABS: Troponin I 0.032 ng/mL (0.000-0.034)
[2025-04-18] VITALS (9 sets, daily range): BP systolic 111–139; BP diastolic 84–98; PULSE 108–120; RESP 16–20; TEMP 36.4–36.6; O2SAT 98
--- NOTE | 2025-04-18 03:27 | PM.IMHP2 ---
H&P: HPI History of Present Illness Date/Time: 04/18/25 03:27 Chief Complaint: Leg swelling and shortness of breath for a couple of days Narrative: 29-year-old male with a past medical history of anxiety who presented to the ER with bilateral lower extremity swelling and shortness of breath for a couple of days. The patient reports that about 4 5 weeks ago he was having sinus pressure nonproductive cough and chest tightness when taking a deep breath. He figured he had a virus. He denies any accompanying sore throat. He did have some chills and some low-grade temperatures but no fevers greater than 100?. He denies any known ill contacts. His symptoms did improve. Then a weaker so later he began having some left sided minute abdominal pain as crampy and intermittent. He would feel intermittently distended with gas. He felt as if he had more episodes of flatulence. He generally start to feel fatigue and had a persistent low appetite. Then several days ago he began noticing some mild lower extremity swelling or his legs just felt tight. 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 But when his symptoms worsen the decided come into the ER for evaluation. In the ER labs demonstrated leukopenia, acute kidney injury and mildly elevated bilirubin with a mildly elevated troponin and BMP. EKG demonstrated sinus tachycardia and ST T-wave abnormalities anterior inferior leads. Venous Doppler studies were negative for DVT and chest x-ray demonstrated cardiomegaly without other acute findings. CTA of the chest abdomen pelvis demonstrated cardiomegaly with large right pleural effusion and elevated right coronary artery pressures with contrast reflux into the hepatic veins without evidence of pulmonary emboli. But also significant ascites noted with mild hepatomegaly per radiology interpretation via feel the patient also likely has some mild splenomegaly as well. The patient does report that he usually drinks 6 beers 2 or 3 times a week but has not drink any alcohol in the last month or so due to his symptoms. Review of Systems Review of Systems: 12 systems were reviewed with pertinent positives and negatives per HPI. Except as documented in the HPI, all other systems were reviewed and are negative. [facility] Past Medical History Medical History (Updated 04/18/25 @ 08:01 by Sonam Shine DO) Genital HSV Alcohol use disorder, mild, abuse Anxiety Surgical History Surgical History (Updated 04/18/25 @ 08:01 by Sonam Shine DO) No significant past surgical history Family History Family History (Updated 04/18/25 @ 08:02 by Sonam Shine DO) Other Adopted Unknown family medical history Social History Social History (Updated 04/18/25 @ 08:04 by Sonam Shnie DO) Social History: The patient is single and lives with his parents. 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 He drinks 6 mixed drinks 2 or 3 times a week. He denies illicit substance use. He works in the [employer] industry. Code status: Full code Surrogate decision maker: Mother and Father. Smoking status: Former smoker Tobacco type: cigarettes Alcohol intake: current Substance use type: does not use Lack of Transportation: No Lack of Food: Never True Current Housing: I Have Housing Concerned About Future Housing: No Difficulty Paying Gas/Electric Bills: No Difficulty Paying for Meds: No Currently Unemployed: No Education: High School Diploma/GED Difficulty w/ Childcare or Family Care: No Spiritual care concerns: No Meds Home Medications and Allergies Home Medications ?Medication ?Instructions ?Recorded ?Confirmed ?Type valacyclovir 500 mg tablet 500 mg PO DAILY 04/17/25 04/17/25 History Allergies Allergy/AdvReac Type Severity Reaction Status Date / Time No Known Allergies Allergy Mild Verified 05/09/12 10:41 Vital Signs Vital Signs - 24 hr 04/17/25 14:53 04/17/25 17:33 04/17/25 18:47 Temperature 97.6 F Pulse Rate 112 H 131 H 126 H Respiratory Rate 20 24 H 22 H Blood Pressure 138/107 H Pulse Oximetry 100 94 100 Oxygen Delivery Room Air 04/17/25 20:54 04/17/25 22:04 04/17/25 22:08 Temperature 97.5 F L 97.8 F 97.8 F Pulse Rate 122 H 120 H 120 H Respiratory Rate 24 H 20 20 Blood Pressure 142/94 H 141/88 H 141/88 H Pulse Oximetry 99 100 100 Oxygen Delivery 04/17/25 22:31 04/17/25 22:54 04/18/25 00:04 Temperature 97.8 F Pulse Rate 109 H 120 H 117 H Respiratory Rate 16 20 Blood Pressure 140/103 H Pulse Oximetry 100 100 Oxygen Delivery Room Air Exam Narrative: Weight 69.1 kg BMI 21.2 Const: Other: No acute distress, well-developed well-nourished, appears stated age HENMT: Other: Mucous membranes are tacky, no oral pharyngeal erythema, head is normocephalic atraumatic Eyes: Other: Pupils are equal and reactive, no scleral icterus, no conjunctival pallor Neck: Other: Mild JVD, no significant anterior cervical lymphadenopathy Resp: Other: Decreased breath sounds at the right posterior lung, no increased work of breathing, no rhonchi or rales. Cardio: Other: Sinus tachycardia, 2+ bilateral radial and pedal pulses, mild JVD, no murmur GI: Other: Soft, nontender, nondistended, positive bowel sounds Skin: Other: No jaundice, no pallor no petechiae Neuro: Other: Alert oriented, speech is clear, no facial asymmetry, no localizing neurologic deficits noted during the course of conversation Extrem: Other: Trace edema to bilateral feet and ankles, no cyanosis, no clubbing Psych: Other: Appropriate mood and affect, pleasant and cooperative, judgment and insight intact Results Labs Labs: Laboratory Tests 04/17/25 17:07 04/17/25 17:07 04/17/25 04/17/25 04/17/25 17:06 17:07 20:06 WBC 3.4 L RBC 4.09 L Hgb 13.5 L Hct 40.7 L MCV 99.5 MCH 33.0 MCHC 33.2 RDW 13.0 Plt Count 305 MPV 10.4 Immature Gran % (Auto) 0.3 Neut % (Auto) 38.0 L Lymph % (Auto) 55.2 H [place] % (Auto) 5.0 Eos % (Auto) 0.9 Baso % (Auto) 0.6 Lymph # (Auto) 1.86 [place] # (Auto) 0.2 Eos # (Auto) 0.0 Baso # (Auto) 0.0 Abs Immat Gran (auto) 0.01 Absolute Neuts (auto) 1.3 Absolute Nucleated RBC 0.000 Nucleated RBC % 0.0 ESR 8 PT 16.2 H INR 1.3 APTT 36.7 Sodium 137 Potassium 3.9 Chloride 106 Carbon Dioxide 23 Anion Gap 8 BUN 24 H Creatinine 1.43 H Estim Creat Clear Calc 73 Estimated GFR 58 L Glucose 162 H Calcium 9.4 Total Bilirubin 1.8 H AST 45 ALT 31 Alkaline Phosphatase 135 H Troponin I 0.037 H* 0.038 H* NT-Pro-B Natriuret Pep 7370 H Total Protein 6.9 Albumin 4.0 Urine Opiates Screen Urine Methadone Screen Ur Barbiturates Screen Ur Phencyclidine Scrn Ur Amphetamine Screen U Benzodiazepines Scrn Urine Cocaine Screen U Cannabinoids Screen Influenza A (RT-PCR) Negative Influenza B (RT-PCR) Negative SARS-CoV-2 RNA (RT-PCR) Negative 04/17/25 04/17/25 21:31 23:10 WBC RBC Hgb Hct MCV MCH MCHC RDW Plt Count MPV Immature Gran % (Auto) Neut % (Auto) Lymph % (Auto) [place] % (Auto) Eos % (Auto) Baso % (Auto) Lymph # (Auto) [place] # (Auto) Eos # (Auto) Baso # (Auto) Abs Immat Gran (auto) Absolute Neuts (auto) Absolute Nucleated RBC Nucleated RBC % ESR PT INR APTT Sodium Potassium Chloride Carbon Dioxide Anion Gap BUN Creatinine Estim Creat Clear Calc Estimated GFR Glucose Calcium Total Bilirubin AST ALT Alkaline Phosphatase Troponin I 0.032 NT-Pro-B Natriuret Pep Total Protein Albumin Urine Opiates Screen Negative Urine Methadone Screen Negative Ur Barbiturates Screen Negative Ur Phencyclidine Scrn Negative Ur Amphetamine Screen Negative U Benzodiazepines Scrn Negative Urine Cocaine Screen Negative U Cannabinoids Screen Negative Influenza A (RT-PCR) Influenza B (RT-PCR) SARS-CoV-2 RNA (RT-PCR) Impressions Chest X-Ray 04/17/25 17:40 IMPRESSION: 1. No acute findings of the lungs. Cardiomegaly. Venous Doppler Study 04/17/25 18:09 IMPRESSION: 1. No deep venous thrombosis of major veins of both lower extremities.. Chest/Abdomen/Pelvis CTA 04/17/25 18:39 IMPRESSION: 1. No evidence of pulmonary embolus. 2. Cardiomegaly with significant congestive heart failure. Large right pleural effusion. Significant ascites. EKG: Sinus tachycardia rate 119 occasional ventricular premature complexes, left atrial enlargement, moderate T-wave abnormality consider inferior and lateral ischemia Quality VTE Prophylaxis VTE prophylaxis: pharmacologic ordered (Lovenox 40 mg subQ daily.) Assessment and Plan Assessment and plan (1) New onset of congestive heart failure: Code(s): I50.9 - Heart failure, unspecified Status: Acute (2) Ascites: Qualifiers: Ascites type: other type Qualified Code(s): R18.8 - Other ascites Code(s): R18.8 - Other ascites Status: Acute (3) Leukopenia: Qualifiers: Leukopenia type: neutropenia Neutropenia type: unspecified Qualified Code(s): D70.9 - Neutropenia, unspecified Code(s): D72.819 - Decreased white blood cell count, unspecified Status: Acute (4) Acute kidney injury: Code(s): N17.9 - Acute kidney failure, unspecified Status: Acute Plan Patient has acute new onset congestive heart failure and has associated leukopenia and recent possible viral symptoms verses shortness of breath due to underlying heart failure. Given presence of leukopenia with lymphocyte-predominant am suspicious of recent viral process. The patient's COVID and flu PCR were negative in the ER. Will check EBV CMV an HIV titers well as Monospot. Will obtain echocardiogram to further evaluate cardiac structure and function to look for also any possible underlying valvular disease were congenital process.. Patient been started on Lasix given his young in Lasix naive will only administer Lasix daily. Will monitor strict I&O's and daily weights. Will repeat CMP and CBC in a.m. will also check magnesium level. Will check TSH. Patient does have mildly elevated troponins but troponin profile is flat. This is more suggestive of troponin leak due to cardiomyopathy. Patient does have mild acute kidney injury likely secondary to decreased cardiac output causing some relative hypoperfusion. Will avoid nephrotoxic medications. Patient has been admitted as observation status. MEDICAL DECISION MAKING NARRATIVE -Spoke with the ED provider in detail regarding patient's evaluation, workup and management -Patient seen and examined at bedside -Collaborated with patient's nurse at the bedside in detail and addressed all concerns -Labs, electrolytes, radiology, investigations and test results personally reviewed and interpreted unless otherwise specified -ED/Consult/Nursing/Ancilliary notes on the chart reviewed and appreciated -applicable past medical records and labs were reviewed and unless stated otherwise. -Spoke with patient at bedside and diagnosis, plan of care was discussed and questions answered. Time Spent with Patient Time with patient: 75 minutes or greater Hospitalist MIPS Advance Care Plan I have confirmed that the patient's Advanced Care Plan is present, code status is documented, or surrogate decision maker is listed in patient medical record.: Yes Medication Reconciliation I have utilized all available resources to obtain, update and review the patients current medications (includes all prescriptions, OTC, herbals, cannabis, and nutritional supplements).: Yes
[2025-04-18 05:36] LABS: Hematocrit 39.8 % (42.0-52.0); Hemoglobin 13.4 g/dL (14.0-18.0); Immature Granulocyte Percent A 0.3 % (0-0.5); Lymphocytes Absolute Auto 1.74 K/mm3 (0.9-3.2); Mean Corpuscular HGB Conc 33.7 g/dl (32-36); Mean Corpuscular Hemoglobin 33.3 pg (26-34); Mean Corpuscular Volume 99.0 fl (80-100); Nucleated Red Blood Cells Absolute Auto 0.000 K/mm3 (0.0-0.012); Nucleated Red Blood Cells Perc 0.0 % (0.0-0.2); Platelet Count Result 274 k/mm3 (150-375); Red Blood Count 4.02 M/mm3 (4.6-6.20); White Blood Count 3.1 K/mm3 (4.5-10.0)
[2025-04-18 05:59] LABS: Alanine Aminotransferase 29 U/L (6-50); Albumin Level 3.6 g/dL (3.5-5.1); Alkaline Phosphatase 115 U/L (38-126); Anion Gap 8 mmol/L (4-12); Aspartate Amino Transferase 44 U/L (17-59); Bilirubin,Total 1.7 mg/dL (0.2-1.3); Blood Urea Nitrogen 23 mg/dL (9-20); Calcium 9.3 mg/dL (8.4-10.2); Carbon Dioxide 24 mmol/L (22-30); Chloride 105 mmol/L (98-107); Estimated CRCL calculation 65 ml/min; Estimated Glomerular Filt Rate 55; Glucose 112 mg/dL (65-110); Potassium 3.5 mmol/L (3.4-5.0); Sodium 137 mmol/L (137-145); Total Protein 6.3 g/dL (6.3-8.2)
--- NOTE | 2025-04-18 06:00 | ECHO_ITS ---
Patient Info Name: Dawson Boyce Age: 29 years : 1995 Gender: Male Ht: 71 in Wt: 152 lbs BSA: 1.85 m2 HR: 108 bpm BP: 139 / 98 mmHg Heart Rhythm: Sinus Rhythm Technical Quality: Good Exam Date: 04/18/2025 9:28 AM Patient Status: I Admit Date: 04/17/2025 Exam Type: CA echo doppler color flow Complete two-dimensional, color flow and Doppler transthoracic echocardiogram is performed. Staff Referring Physician: Naomy Gibson [facility] Runstitching Machine Operator: Kelly Bah Attending Provider: Sonam Shine DO Summary 1. Complete two-dimensional, color flow and Doppler transthoracic echocardiogram is performed. 2. The left ventricle is moderately dilated with severely reduced systolic function. The left ventricular ejection fraction is visually estimated to be less than 15%. 3. The right ventricle is normal in size and systolic function. 4. The left atrium is moderately dilated. 5. The right atrium is mildly dilated. 6. Dilated inferior vena cava with <50% collapse upon inspiration consistent with significantly elevated right atrial pressure, 15 mmHg. 7. There is trace pericardial effusion. Left Ventricle The left ventricle is moderately dilated with severely reduced systolic function. The left ventricular ejection fraction is visually estimated to be less than 15%. Right Ventricle The right ventricle is normal in size and systolic function. Left Atria The left atrium is moderately dilated. Right Atria The right atrium is mildly dilated. Atrial Septum The atrial septum is normal. Aortic Valve The aortic valve is trileaflet and opens well. There is no aortic regurgitation. Pulmonic Valve The pulmonic valve is normal. There is trace pulmonic valve regurgitation. Mitral Valve The mitral valve is normal. There is trace mitral regurgitation. Tricuspid Valve The tricuspid valve is normal. There is mild tricuspid regurgitation. Pulmonary Arteries Pulmonary arteries are normal by two dimensional, color flow and Doppler interrogation. Pericardium/Pleural There is trace pericardial effusion. Inferior Vena Cava Dilated inferior vena cava with <50% collapse upon inspiration consistent with significantly elevated right atrial pressure, 15 mmHg. Aorta The aortic root at the level of the sinus of Valsalva measures 2.6 cm in diameter. Left Ventricular Outflow Tract Name Value Normal LVOT 2D LVOT Diameter 2.0 cm Pulmonic Valve Name Value Normal RVOT Doppler RVOT Peak Velocity 35 cm/s RVOT Peak Gradient 0 mmHg PV Doppler PV Peak Velocity 51 cm/s PV Peak Gradient 1 mmHg Mitral Valve Name Value Normal MV Regurgitation Doppler MR Peak Gradient 61 mmHg MV Diastolic Function MV E Peak Velocity 103 cm/s MV A Peak Velocity 54 cm/s MV E/A 1.9 MV Decel Time (PW) 58 ms MV Annular TDI MV E/e' (Septal) 21.9 MV E/e' (Lateral) 11.2 MV E/e' (Average) 16.5 Tricuspid Valve Name Value Normal TV Regurgitation Doppler TR Peak Velocity 247 cm/s TR Peak Gradient 23 mmHg Estimated PAP/RSVP RA Pressure 15 mmHg <=5 PA Systolic Pressure 39 mmHg <36 RV Systolic Pressure 39 mmHg <36 TV Annular TDI TV Lateral Candida s' Velocity 4.1 cm/s >=9.5 Aorta Name Value Normal Ascending Aorta Ao Root Diameter (MM) 3.1 cm Ao Root Diam Index (MM) 1.7 cm/m2 Aortic Valve Name Value Normal AV Doppler AV Peak Velocity 73 cm/s AV Peak Gradient 2 mmHg AV Mean Gradient 1 mmHg AV VTI 10 cm AV Regurgitation 2D LVOT Area 3.2 cm2 Ventricles Name Value Normal LV Dimensions 2D/MM IVS Diastolic Thickness (2D) 0.7 cm 0.6-1.0 LVID Diastole (2D) 6.6 cm 4.2-5.8 LVIW Diastolic Thickness (2D) 0.7 cm 0.6-1.0 LVID Systole (2D) 6.1 cm 2.5-4.0 LVOT Diameter 2.0 cm LV Mass (2D Cubed) 176.13 g 88.00-224.00 LV Mass Index (2D Cubed) 95 g/m2 49-115 Relative Wall Thickness (2D) 0.20 <=0.42 LV Fractional Shortening/Ejection Fraction 2D/MM LV Fractional Shortening (2D) 8 % 25-43 LV EF (2D Teichholz) 17 % LV Diastolic Volume (4C MOD) 179 ml LV EF (4C MOD) 13 % LV Diastolic Volume (2C MOD) 171 ml LV EF (2C MOD) 19 % LV Diastolic Volume (BP MOD) 175 ml 62-150 LV Diastolic Volume Index (BP MOD) 95 ml/m2 34-74 LV Systolic Volume (BP MOD) 148 ml 21-61 LV Systolic Volume Index (BP MOD) 80 ml/m2 11-31 LV EF (BP MOD) 15 % 52-72 LV Diastolic Length (4C) 8.8 cm LV Systolic Length (4C) 8.5 cm LV Stroke Volume (4C MOD) 23 ml Atria Name Value Normal LA Dimensions LA Dimension (MM) 5.0 cm 3.0-4.0 LA Volume (4C A-L) 93 ml LA Volume (BP A-L) 104 ml RA Dimensions RA Area (4C) 24.4 cm2 <=18.0 Report Signatures
[2025-04-18 06:30] LABS: Negative Monotest Control Negative (Negative); Positive Monotest Control Positive (Positive)
[2025-04-18 06:38] LABS: HIV 1/2 Ab P24 Ag Result Negative (Negative)
--- NOTE | 2025-04-18 07:27 | P.PNIM_ITS ---
Assessment and Plan Assessment and Plan (1) New onset of congestive heart failure: Code(s): I50.9 - Heart failure, unspecified Status: Acute Assessment and Plan: * Symptoms: Shortness of breath, lower extremity edema * Supportive treatment * BNP: 7370 * EKG: Sinus tachycardia with occasional ventricular premature complexes, LAE * Chest XR: No acute findings of the lungs. Cardiomegaly. * Echo: Severely reduced systolic function, EF less than 15%, mildly dialated LA and RA, dilated IVC w/ <50% collapse upon inspiration consistent w/ sig elevated RAP * Monitor vital signs, I&Os, BUN/creatinine, daily weights, neuro status and patient is a fall risk * Monitor serum electrolytes, Keep serum Potassium>4 and serum Magnesium>2 and CBC * Cardiology consulted * Increase Lasix to 40 mg IV b.i.d. * Will eventually add GDMT (2) Acute kidney injury: Code(s): N17.9 - Acute kidney failure, unspecified Status: Acute Assessment and Plan: * Creatinine: 1.43, GFR: 58, BUN: 24 * Trend renal function * Trend electrolytes, correct as needed * Likely secondary to dehydration, diuresis (3) Hypertension: Code(s): I10 - Essential (primary) hypertension Status: Acute Assessment and Plan: * Patient's blood pressure was reviewed on 04/18 * Blood pressure remains well controlled * Will continue current medications (4) Mononucleosis: Code(s): B27.90 - Infectious mononucleosis, unspecified without complication Status: Acute Assessment and Plan: * Monospot positive * Supportive treatment * No need for treatment with antiviral or corticosteroid at this time * Monitor vital signs, I&Os Subjective Date/time seen: 04/18/25 07:27 Interval history: 29-year-old male with a past medical history of anxiety who presented to the ER with bilateral lower extremity swelling and shortness of breath for a couple of days. 04/18/2025 Patient sitting comfortably in bed at time of exam. Denies any chest pain, shortness of breath, n/v or abd pain. Cardiology consulted - increased Lasix to 40mg BID. Echo obtained - EF of 15%. Chest CT pending. Will follow along with Cardiology recommendations. Kidney function slightly worse today, Cr 1.5, likely from diuresis. Continue to monitor kindney function but will need to keep diuresing. Review of Systems Review of Systems: 12 systems were reviewed with pertinent positives and negatives per HPI. Except as documented in the HPI, all other systems were reviewed and are negative. Exam Narrative: Weight 69.1 kg BMI 21.2 Objective Data Vital Signs Vital Signs: Vital Signs - 24 hr 04/17/25 14:53 04/17/25 17:33 04/17/25 18:47 Temperature 97.6 F Pulse Rate 112 H 131 H 126 H Respiratory Rate 20 24 H 22 H Blood Pressure 138/107 H Pulse Oximetry 100 94 100 Oxygen Delivery Room Air 04/17/25 20:54 04/17/25 22:04 04/17/25 22:08 Temperature 97.5 F L 97.8 F 97.8 F Pulse Rate 122 H 120 H 120 H Respiratory Rate 24 H 20 20 Blood Pressure 142/94 H 141/88 H 141/88 H Pulse Oximetry 99 100 100 Oxygen Delivery 04/17/25 22:31 04/17/25 22:54 04/18/25 00:04 Temperature 97.8 F Pulse Rate 109 H 120 H 117 H Respiratory Rate 16 20 Blood Pressure 140/103 H Pulse Oximetry 100 100 Oxygen Delivery Room Air 04/18/25 04:05 04/18/25 05:54 Temperature 97.6 F Pulse Rate 108 H 108 H Respiratory Rate 16 Blood Pressure 139/98 H Pulse Oximetry 98 Oxygen Delivery Intake/Output Intake/Output: Intake & Output 04/15/25 04/16/25 04/17/25 04/18/25 23:59 23:59 23:59 23:59 Intake Total 550 Balance 550 Meds/Results Medications: Active Medications Generic Name Dose Route Start Last Admin Trade Name Freq PRN Reason Stop Dose Admin Enoxaparin Sodium 40 mg 04/18/25 09:00 Enoxaparin 40 Mg/0.4 Ml Syringe SUB-Q DAILY [facility] Furosemide 40 mg 04/18/25 09:00 Furosemide Inj 40 Mg/4 Ml Vial IV PUSH DAILY [facility] Perflutren Lipid Microsphere 0 ml 04/17/25 20:43 Perflutren Lipid Microspheres 1.5 Ml Vial Diluted To 10 Ml Total Volume IV PUSH 04/20/25 20:44 ONCE PRN adequate visualization Protocol Valacyclovir HCl 500 mg 04/18/25 09:00 Valacyclovir Hcl 500 Mg Tablet PO DAILY [facility] Radiology Results: ITS Impressions Chest X-Ray 04/17/25 17:40 IMPRESSION: 1. No acute findings of the lungs. Cardiomegaly. Venous Doppler Study 04/17/25 18:09 IMPRESSION: 1. No deep venous thrombosis of major veins of both lower extremities.. Chest/Abdomen/Pelvis CTA 04/17/25 18:39 IMPRESSION: 1. No evidence of pulmonary embolus. 2. Cardiomegaly with significant congestive heart failure. Large right pleural effusion. Significant ascites. Labs Labs: Laboratory Results - last 24 hr 04/17/25 04/17/25 04/17/25 17:06 17:07 20:06 WBC 3.4 L RBC 4.09 L Hgb 13.5 L Hct 40.7 L MCV 99.5 MCH 33.0 MCHC 33.2 RDW 13.0 Plt Count 305 MPV 10.4 Immature Gran % (Auto) 0.3 Neut % (Auto) 38.0 L Lymph % (Auto) 55.2 H [place] % (Auto) 5.0 Eos % (Auto) 0.9 Baso % (Auto) 0.6 Lymph # (Auto) 1.86 [place] # (Auto) 0.2 Eos # (Auto) 0.0 Baso # (Auto) 0.0 Abs Immat Gran (auto) 0.01 Absolute Neuts (auto) 1.3 Absolute Nucleated RBC 0.000 Nucleated RBC % 0.0 ESR 8 PT 16.2 H INR 1.3 APTT 36.7 Sodium 137 Potassium 3.9 Chloride 106 Carbon Dioxide 23 Anion Gap 8 BUN 24 H Creatinine 1.43 H Estim Creat Clear Calc 73 Estimated GFR 58 L Glucose 162 H Calcium 9.4 Total Bilirubin 1.8 H AST 45 ALT 31 Alkaline Phosphatase 135 H Troponin I 0.037 H* 0.038 H* NT-Pro-B Natriuret Pep 7370 H Total Protein 6.9 Albumin 4.0 Urine Opiates Screen Urine Methadone Screen Ur Barbiturates Screen Ur Phencyclidine Scrn Ur Amphetamine Screen U Benzodiazepines Scrn Urine Cocaine Screen U Cannabinoids Screen Monoscreen HIV 1&2 Ab/P24 Ag 4thGn Influenza A (RT-PCR) Negative Influenza B (RT-PCR) Negative SARS-CoV-2 RNA (RT-PCR) Negative 04/17/25 04/17/25 04/18/25 21:31 23:10 05:12 WBC RBC Hgb Hct MCV MCH MCHC RDW Plt Count MPV Immature Gran % (Auto) Neut % (Auto) Lymph % (Auto) [place] % (Auto) Eos % (Auto) Baso % (Auto) Lymph # (Auto) [place] # (Auto) Eos # (Auto) Baso # (Auto) Abs Immat Gran (auto) Absolute Neuts (auto) Absolute Nucleated RBC Nucleated RBC % ESR PT INR APTT Sodium 137 Potassium 3.5 Chloride 105 Carbon Dioxide 24 Anion Gap 8 BUN 23 H Creatinine 1.50 H Estim Creat Clear Calc 65 Estimated GFR 55 L Glucose 112 H Calcium 9.3 Total Bilirubin 1.7 H AST 44 ALT 29 Alkaline Phosphatase 115 Troponin I 0.032 NT-Pro-B Natriuret Pep Total Protein 6.3 Albumin 3.6 Urine Opiates Screen Negative Urine Methadone Screen Negative Ur Barbiturates Screen Negative Ur Phencyclidine Scrn Negative Ur Amphetamine Screen Negative U Benzodiazepines Scrn Negative Urine Cocaine Screen Negative U Cannabinoids Screen Negative Monoscreen HIV 1&2 Ab/P24 Ag 4thGn Negative Influenza A (RT-PCR) Influenza B (RT-PCR) SARS-CoV-2 RNA (RT-PCR) 04/18/25 05:13 WBC 3.1 L RBC 4.02 L Hgb 13.4 L Hct 39.8 L MCV 99.0 MCH 33.3 MCHC 33.7 RDW 13.1 Plt Count 274 MPV 10.5 H Immature Gran % (Auto) 0.3 Neut % (Auto) 34.6 L Lymph % (Auto) 56.9 H [place] % (Auto) 5.9 Eos % (Auto) 1.6 Baso % (Auto) 0.7 Lymph # (Auto) 1.74 [place] # (Auto) 0.2 Eos # (Auto) 0.1 Baso # (Auto) 0.0 Abs Immat Gran (auto) 0.01 Absolute Neuts (auto) 1.1 L Absolute Nucleated RBC 0.000 Nucleated RBC % 0.0 ESR PT INR APTT Sodium Potassium Chloride Carbon Dioxide Anion Gap BUN Creatinine Estim Creat Clear Calc Estimated GFR Glucose Calcium Total Bilirubin AST ALT Alkaline Phosphatase Troponin I NT-Pro-B Natriuret Pep Total Protein Albumin Urine Opiates Screen Urine Methadone Screen Ur Barbiturates Screen Ur Phencyclidine Scrn Ur Amphetamine Screen U Benzodiazepines Scrn Urine Cocaine Screen U Cannabinoids Screen Monoscreen Positive A HIV 1&2 Ab/P24 Ag 4thGn Influenza A (RT-PCR) Influenza B (RT-PCR) SARS-CoV-2 RNA (RT-PCR) Quality VTE Prophylaxis VTE prophylaxis: pharmacologic ordered (Lovenox 40 mg subQ daily.)
--- NOTE | 2025-04-18 09:51 | PM.CNCAR ---
Assessment and Plan Assessment and plan (1) CHF (congestive heart failure): Qualifiers: Heart failure type: other Qualified Code(s): I50.9 - Heart failure, unspecified Code(s): I50.9 - Heart failure, unspecified Status: Acute (2) Alcohol use disorder, mild, abuse: Code(s): F10.10 - Alcohol abuse, uncomplicated Status: Acute (3) Acute kidney injury: Code(s): N17.9 - Acute kidney failure, unspecified Status: Acute Plan 29-year-old man presented with shortness of breath and lower extremity swelling Acute decompensated heart failure -likely systolic in nature and will obtain transthoracic echocardiogram to confirm -will increase Lasix to 40 mg IV b.i.d. -will eventually add GDMT -we discussed the etiologies of viral, nonischemic including alcohol and arrhythmia secondary to alcohol, and unlikely etiology of ischemic Hypertension -Lasix 40 mg IV b.i.d. -likely secondary to increased alcohol consumption Acute renal injury -unknown baseline -continue diuresis Alcohol abuse -discussed cutting down on alcohol consumption given his diagnosis of acute decompensated heart failure to which she expressed understanding and agreed History of Present Illness History of Present Illness Consult date/time: 04/18/25 09:51 Requesting physician: Sonam Shine DO Consult reason: congestive heart failure Reason For Visit: CHF Narrative: 29-year-old man presented with shortness of breath and lower extremity swelling. About 6 weeks ago, he had a upper respiratory viral illness. During that time, he developed shortness of breath that continue to progress. About 4 weeks ago he started to developed sharp chest discomfort that is intermittent throughout the day with no clear exertional component. Around this time, he started developing orthopnea as well as lower extremity swelling. He noted exertional intolerance secondary to dyspnea. Occasional palpitations. Denies syncopal events. Since being admitted and on IV diuretics, he noted his breathing improved slightly and his lower extremity swelling resolving. Still continues to have distension of the abdomen. Denies tobacco use. Drinks about 3-5 shots 3-5 days a week. Review of Systems Cardiovascular: Cardiovascular: Reports as per HPI Respiratory: Respiratory: Reports as per HPI [facility] Past Medical History Medical History (Updated 04/18/25 @ 08:01 by Sonam Shine DO) Genital HSV Alcohol use disorder, mild, abuse Anxiety Surgical History Surgical History (Updated 04/18/25 @ 08:01 by Sonam Shine DO) No significant past surgical history Family History Family History (Updated 04/18/25 @ 08:02 by Sonam Shine DO) Other Adopted Unknown family medical history Social History Social History (Updated 04/18/25 @ 08:04 by Sonam Shine DO) Social History: The patient is single and lives with his parents. 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 He drinks 6 mixed drinks 2 or 3 times a week. He denies illicit substance use. He works in the [employer] industry. Code status: Full code Surrogate decision maker: Mother and Father. Smoking status: Former smoker Tobacco type: cigarettes Alcohol intake: current Substance use type: does not use Lack of Transportation: No Lack of Food: Never True Current Housing: I Have Housing Concerned About Future Housing: No Difficulty Paying Gas/Electric Bills: No Difficulty Paying for Meds: No Currently Unemployed: No Education: High School Diploma/GED Difficulty w/ Childcare or Family Care: No Spiritual care concerns: No Meds Home Medications and Allergies Home Medications ?Medication ?Instructions ?Recorded ?Confirmed ?Type valacyclovir 500 mg tablet 500 mg PO DAILY 04/17/25 04/17/25 History Allergies Allergy/AdvReac Type Severity Reaction Status Date / Time No Known Allergies Allergy Mild Verified 05/09/12 10:41 Vital Signs Vital Signs - 24 hr 04/17/25 14:53 04/17/25 17:33 04/17/25 18:47 Temperature 36.4 C Pulse Rate 112 H 131 H 126 H Respiratory Rate 20 24 H 22 H Blood Pressure 138/107 H Pulse Oximetry 100 94 100 Oxygen Delivery Room Air 04/17/25 20:54 04/17/25 22:04 04/17/25 22:08 Temperature 36.4 C L 36.6 C 36.6 C Pulse Rate 122 H 120 H 120 H Respiratory Rate 24 H 20 20 Blood Pressure 142/94 H 141/88 H 141/88 H Pulse Oximetry 99 100 100 Oxygen Delivery 04/17/25 22:31 04/17/25 22:54 04/18/25 00:04 Temperature 36.6 C Pulse Rate 109 H 120 H 117 H Respiratory Rate 16 20 Blood Pressure 140/103 H Pulse Oximetry 100 100 Oxygen Delivery Room Air 04/18/25 04:05 04/18/25 05:54 Temperature 36.4 C Pulse Rate 108 H 108 H Respiratory Rate 16 Blood Pressure 139/98 H Pulse Oximetry 98 Oxygen Delivery Exam Const: General: comfortable HENMT: Mouth: Yes moist mucous membranes Eyes: EOM: EOMs intact bilaterally Neck: Other: JVD 15 cm Resp: Effort & Inspection: normal respiratory effort Auscultation: rales Other: Diminished lung sounds over the right lung rogers Cardio: Rate: tachycardic Rhythm: regular rhythm Heart sounds: Gallop heart sound present Extrem: General: no pedal edema Results Labs and Meds 04/18/25 05:13 04/18/25 05:12 Lab results: Cardiac Enzymes 04/17/25 04/17/25 04/17/25 Range/Units 17:07 20:06 23:10 AST 45 (17-59) U/L Troponin I 0.037 H* 0.038 H* 0.032 (0.000-0.034) ng/mL 04/18/25 Range/Units 05:12 AST 44 (17-59) U/L Troponin I (0.000-0.034) ng/mL Coagulation 04/17/25 Range/Units 17:07 PT 16.2 H (11.1-14.7) Seconds APTT 36.7 (22.3-36.8) Seconds CBC 04/17/25 04/18/25 Range/Units 17:07 05:13 WBC 3.4 L 3.1 L (4.5-10.0) K/mm3 RBC 4.09 L 4.02 L (4.6-6.20) M/mm3 Hgb 13.5 L 13.4 L (14.0-18.0) g/dL Hct 40.7 L 39.8 L (42.0-52.0) % Plt Count 305 274 (150-375) k/mm3 Lymph # (Auto) 1.86 1.74 (0.9-3.2) K/mm3 [place] # (Auto) 0.2 0.2 (0.1-0.6) K/mm3 Eos # (Auto) 0.0 0.1 (0-0.3) K/mm3 Baso # (Auto) 0.0 0.0 (0.0-0.1) K/mm3 Comprehensive Metabolic Panel 04/17/25 04/18/25 Range/Units 17:07 05:12 Sodium 137 137 (137-145) mmol/L Potassium 3.9 3.5 (3.4-5.0) mmol/L Chloride 106 105 (98-107) mmol/L Carbon Dioxide 23 24 (22-30) mmol/L BUN 24 H 23 H (9-20) mg/dL Creatinine 1.43 H 1.50 H (0.7-1.3) mg/dL Glucose 162 H 112 H (65-110) mg/dL Calcium 9.4 9.3 (8.4-10.2) mg/dL AST 45 44 (17-59) U/L ALT 31 29 (6-50) U/L Alkaline Phosphatase 135 H 115 (38-126) U/L Total Protein 6.9 6.3 (6.3-8.2) g/dL Albumin 4.0 3.6 (3.5-5.1) g/dL Intake and Output 04/17/25 04/18/25 04/18/25 23:59 07:59 15:59 Intake Total 550 0 Balance 550 0 Intake: Oral 550 0 Other: # Unmeasured Voids 2 Patient Weight 04/18/25 23:59 Weight 70.7 kg
[2025-04-18] MEDS: ENOXAPARIN 40 MG/0.4 ML SYRINGE SUB-Q (09:57)
[2025-04-18] MEDS: FUROSEMIDE INJ 40 MG/4 ML VIAL IV PUSH ×2 (09:58→16:30)
[2025-04-18 17:18] LABS: CRP < 0.5 mg/dL (<1.0); Magnesium 1.7 mg/dL (1.6-2.3)
[2025-04-19] VITALS (11 sets, daily range): BP systolic 116–126; BP diastolic 77–94; PULSE 105–139; RESP 18–20; TEMP 36.4–36.7; O2SAT 92–100
[2025-04-19 06:08] LABS: Cytomegalovirus (CMV) Ab, IgG 4.70 U/mL (0.00-0.59); Cytomegalovirus (CMV) Ab, IgM <30.0 AU/mL (0.0-29.9)
[2025-04-19] MEDS: FUROSEMIDE INJ 40 MG/4 ML VIAL IV PUSH (08:45)
[2025-04-19] MEDS: ENOXAPARIN 40 MG/0.4 ML SYRINGE SUB-Q (08:45)
[2025-04-19] MEDS: SPIRONOLACTONE 25 MG TABLET PO (08:46)
[2025-04-19] MEDS: LOSARTAN POTASSIUM 25 MG TABLET PO (08:46)
--- NOTE | 2025-04-19 09:31 | PM.PNCARD ---
Progress Note: A&P Assessment and Plan (1) Alcohol use disorder, mild, abuse: Code(s): F10.10 - Alcohol abuse, uncomplicated Status: Acute (2) New onset of congestive heart failure: Code(s): I50.9 - Heart failure, unspecified Status: Acute (3) Acute kidney injury: Code(s): N17.9 - Acute kidney failure, unspecified Status: Acute Plan 29-year-old man presented with shortness of breath and lower extremity swelling Acute decompensated systolic heart failure -will discontinue Lasix -will start losartan 25 mg p.o. daily and spironolactone 25 mg p.o. daily -the patient is tolerating medications well, will start Jardiance 10 mg p.o. daily and Toprol 25 mg p.o. daily tomorrow -once again we discussed the etiologies of viral, nonischemic including alcohol and arrhythmia secondary to alcohol, and unlikely etiology of ischemic -we also initiated discussion on LifeVest as well as ischemic evaluation describing both coronary CTA as well as invasive left heart catheterization and ultimately the patient agreed to proceed for with coronary CTA at outpatient setting Acute renal injury -unknown baseline -recommend to repeat blood work and trend the creatinine Alcohol abuse -discussed cutting down on alcohol consumption given his diagnosis of acute decompensated heart failure to which she expressed understanding and agreed Subjective Date/time seen: 04/19/25 09:31 Interval history: States that he is doing better today. Denies any shortness of breath or chest discomfort. Denies any orthopnea. Lower extremity swelling resolved. Review of Systems Cardiovascular: Cardiovascular: Reports as per HPI Respiratory: Respiratory: Reports as per HPI Exam Const: General: comfortable HENMT: Mouth: Yes moist mucous membranes Eyes: EOM: EOMs intact bilaterally Neck: Neck: no JVD Resp: Effort & Inspection: normal respiratory effort Auscultation: clear to auscultation bilaterally Cardio: Rate: tachycardic Rhythm: regular rhythm Heart sounds: no gallops and no murmurs Extrem: General: no pedal edema Objective Data Vital Signs Vital Signs: Vital Signs - 24 hr 04/18/25 12:00 04/18/25 14:00 04/18/25 16:00 Temperature 36.6 C Pulse Rate 114 H 120 H 112 H Respiratory Rate 20 Blood Pressure 111/86 Pulse Oximetry 98 Oxygen Delivery 04/18/25 20:00 04/18/25 20:00 04/18/25 20:37 Temperature 36.6 C Pulse Rate 116 H 119 H 116 H Respiratory Rate 18 18 Blood Pressure 124/84 Pulse Oximetry 98 98 Oxygen Delivery Room Air 04/19/25 00:00 04/19/25 03:17 04/19/25 04:00 Temperature 36.4 C Pulse Rate 106 H 106 H 105 H Respiratory Rate 18 Blood Pressure 124/84 Pulse Oximetry 92 Oxygen Delivery Intake/Output Intake/Output: Intake & Output 04/16/25 04/17/25 04/18/25 04/19/25 23:59 23:59 23:59 23:59 Intake Total 1100 490 Balance 1100 490 Meds/Results Medications: Active Medications Generic Name Dose Route Start Last Admin Trade Name Freq PRN Reason Stop Dose Admin Enoxaparin Sodium 40 mg 04/18/25 09:00 04/19/25 08:45 Enoxaparin 40 Mg/0.4 Ml Syringe SUB-Q 40 mg DAILY ANDREA Administration Furosemide 40 mg 04/18/25 17:00 04/19/25 08:45 Furosemide Inj 40 Mg/4 Ml Vial IV PUSH 40 mg BID ANDREA Administration Losartan Potassium 25 mg 04/19/25 09:00 04/19/25 08:46 Losartan Potassium 25 Mg Tablet PO 25 mg DAILY ANDREA Administration Magnesium Oxide 400 mg 04/19/25 09:31 Magnesium Oxide 400 Mg Tablet PO 04/19/25 09:32 ONCE ONE Perflutren Lipid Microsphere 0 ml 04/17/25 20:43 Perflutren Lipid Microspheres 1.5 Ml Vial Diluted To 10 Ml Total Volume IV PUSH 04/20/25 20:44 ONCE PRN adequate visualization Protocol Spironolactone 25 mg 04/19/25 09:00 04/19/25 08:46 Spironolactone 25 Mg Tablet PO 25 mg QAM ANDREA Administration Valacyclovir HCl 500 mg 04/18/25 09:00 04/19/25 08:45 Valacyclovir Hcl 500 Mg Tablet PO 500 mg DAILY ANDREA Administration Radiology Results: ITS Impressions Chest X-Ray 04/17/25 17:40 IMPRESSION: 1. No acute findings of the lungs. Cardiomegaly. Venous Doppler Study 04/17/25 18:09 IMPRESSION: 1. No deep venous thrombosis of major veins of both lower extremities.. Chest/Abdomen/Pelvis CTA 04/17/25 18:39 IMPRESSION: 1. No evidence of pulmonary embolus. 2. Cardiomegaly with significant congestive heart failure. Large right pleural effusion. Significant ascites. Labs Labs: Laboratory Results - last 24 hr 04/18/25 04/18/25 05:13 16:48 Magnesium 1.7 C-Reactive Protein < 0.5 CMV IgG Ab 4.70 H CMV IgM Ab <30.0
[2025-04-19 10:35] LABS: Hematocrit 40.3 % (42.0-52.0); Hemoglobin 13.7 g/dL (14.0-18.0); Immature Granulocyte Percent A 0.0 % (0-0.5); Lymphocytes Absolute Auto 1.48 K/mm3 (0.9-3.2); Mean Corpuscular HGB Conc 34.0 g/dl (32-36); Mean Corpuscular Hemoglobin 33.2 pg (26-34); Mean Corpuscular Volume 97.6 fl (80-100); Nucleated Red Blood Cells Absolute Auto 0.000 K/mm3 (0.0-0.012); Nucleated Red Blood Cells Perc 0.0 % (0.0-0.2); Platelet Count Result 277 k/mm3 (150-375); Red Blood Count 4.13 M/mm3 (4.6-6.20); White Blood Count 3.1 K/mm3 (4.5-10.0)
[2025-04-19 10:53] LABS: Alanine Aminotransferase 34 U/L (6-50); Albumin Level 3.8 g/dL (3.5-5.1); Alkaline Phosphatase 138 U/L (38-126); Anion Gap 8 mmol/L (4-12); Aspartate Amino Transferase 49 U/L (17-59); Bilirubin,Total 1.1 mg/dL (0.2-1.3); Blood Urea Nitrogen 22 mg/dL (9-20); Calcium 9.1 mg/dL (8.4-10.2); Carbon Dioxide 25 mmol/L (22-30); Chloride 102 mmol/L (98-107); Estimated CRCL calculation 71 ml/min; Estimated Glomerular Filt Rate > 60; Glucose 187 mg/dL (65-110); Potassium 3.5 mmol/L (3.4-5.0); Sodium 135 mmol/L (137-145); Total Protein 6.5 g/dL (6.3-8.2)
[2025-04-19] MEDS: MAGNESIUM OXIDE 400 MG TABLET PO (11:11)
--- NOTE | 2025-04-19 11:33 | P.PNIM_ITS ---
Assessment and Plan Assessment and Plan (1) New onset of congestive heart failure: Code(s): I50.9 - Heart failure, unspecified Status: Acute Assessment and Plan: * Symptoms: Shortness of breath, lower extremity edema * Supportive treatment * BNP: 7370 * EKG: Sinus tachycardia with occasional ventricular premature complexes, LAE * Chest XR: No acute findings of the lungs. Cardiomegaly. * Echo: Severely reduced systolic function, EF less than 15%, mildly dialated LA and RA, dilated IVC w/ <50% collapse upon inspiration consistent w/ sig elevated RAP * Monitor vital signs, I&Os, BUN/creatinine, daily weights, neuro status and patient is a fall risk * Monitor serum electrolytes, Keep serum Potassium>4 and serum Magnesium>2 and CBC * Cardiology consulted * Increase Lasix to 40 mg IV b.i.d. * Will eventually add GDMT * Starting Losartn 25 mg p.o. daily and spironolactone 25 mg p.o. daily * Tomorrow, start Jardiance 10 mg p.o. daily and Toprol 25 mg p.o. daily if tolerating new medications well (2) Acute kidney injury: Code(s): N17.9 - Acute kidney failure, unspecified Status: Acute Assessment and Plan: * Creatinine: 1.43, GFR: 58, BUN: 24 * Trend renal function * Trend electrolytes, correct as needed * Likely secondary to dehydration, diuresis * 04/19: Cr 1.36 (3) Hypertension: Code(s): I10 - Essential (primary) hypertension Status: Acute Assessment and Plan: * Patient's blood pressure was reviewed on 04/18 * Blood pressure remains well controlled * Will continue current medications (4) Mononucleosis: Code(s): B27.90 - Infectious mononucleosis, unspecified without complication Status: Acute Assessment and Plan: * Monospot positive * Supportive treatment * No need for treatment with antiviral or corticosteroid at this time * Monitor vital signs, I&Os Subjective Date/time seen: 04/19/25 11:33 Interval history: 29-year-old male with a past medical history of anxiety who presented to the ER with bilateral lower extremity swelling and shortness of breath for a couple of days. 04/19/2025 Patient sitting comfortably in bed at time of exam. Denies any chest pain, shortness of breath, n/v or abd pain. Starting patient on Losartan 25mg PO daily and spironolactone 25mg po Daily, Life Vest has also been ordered per Cardiology. Will also start Jardiance 10mg daily and Toprol 25mg daily tomorrow. Otherwise patient is feeling much better and has no complaints. Review of Systems Review of Systems: All systems reviewed & are unremarkable except as noted in HPI and below Exam Narrative: Weight 69.1 kg BMI 21.2 Const: Other: No acute distress, well-developed well-nourished, appears stated age HENMT: Other: Mucous membranes are tacky, no oral pharyngeal erythema, head is normocephalic atraumatic Eyes: Other: Pupils are equal and reactive, no scleral icterus, no conjunctival pallor Neck: Other: Mild JVD, no significant anterior cervical lymphadenopathy Resp: Other: Decreased breath sounds at the right posterior lung, no increased work of breathing, no rhonchi or rales. Cardio: Other: Sinus tachycardia, 2+ bilateral radial and pedal pulses, mild JVD, no murmur GI: Other: Soft, nontender, nondistended, positive bowel sounds Skin: Other: No jaundice, no pallor no petechiae Neuro: Other: Alert oriented, speech is clear, no facial asymmetry, no localizing neurologic deficits noted during the course of conversation Extrem: Other: Trace edema to bilateral feet and ankles, no cyanosis, no clubbing Psych: Other: Appropriate mood and affect, pleasant and cooperative, judgment and insight intact Objective Data Vital Signs Vital Signs: Vital Signs - 24 hr 04/18/25 12:00 04/18/25 14:00 04/18/25 16:00 Temperature 98 F Pulse Rate 114 H 120 H 112 H Respiratory Rate 20 Blood Pressure 111/86 Pulse Oximetry 98 Oxygen Delivery 04/18/25 20:00 04/18/25 20:00 04/18/25 20:37 Temperature 97.9 F Pulse Rate 116 H 119 H 116 H Respiratory Rate 18 18 Blood Pressure 124/84 Pulse Oximetry 98 98 Oxygen Delivery Room Air 04/19/25 00:00 04/19/25 03:17 04/19/25 04:00 Temperature 97.6 F Pulse Rate 106 H 106 H 105 H Respiratory Rate 18 Blood Pressure 124/84 Pulse Oximetry 92 Oxygen Delivery 04/19/25 09:50 Temperature Pulse Rate 117 H Respiratory Rate Blood Pressure Pulse Oximetry 95 Oxygen Delivery Room Air Intake/Output Intake/Output: Intake & Output 04/16/25 04/17/25 04/18/25 04/19/25 23:59 23:59 23:59 23:59 Intake Total 1100 610 Balance 1100 610 Meds/Results Medications: Active Medications Generic Name Dose Route Start Last Admin Trade Name Freq PRN Reason Stop Dose Admin Enoxaparin Sodium 40 mg 04/18/25 09:00 04/19/25 08:45 Enoxaparin 40 Mg/0.4 Ml Syringe SUB-Q 40 mg DAILY ANDREA Administration Losartan Potassium 25 mg 04/19/25 09:00 04/19/25 08:46 Losartan Potassium 25 Mg Tablet PO 25 mg DAILY ANDREA Administration Perflutren Lipid Microsphere 0 ml 04/17/25 20:43 Perflutren Lipid Microspheres 1.5 Ml Vial Diluted To 10 Ml Total Volume IV PUSH 04/20/25 20:44 ONCE PRN adequate visualization Protocol Spironolactone 25 mg 04/19/25 09:00 04/19/25 08:46 Spironolactone 25 Mg Tablet PO 25 mg QAM ANDREA Administration Valacyclovir HCl 500 mg 04/18/25 09:00 04/19/25 08:45 Valacyclovir Hcl 500 Mg Tablet PO 500 mg DAILY ANDREA Administration Radiology Results: ITS Impressions Chest X-Ray 04/17/25 17:40 IMPRESSION: 1. No acute findings of the lungs. Cardiomegaly. Venous Doppler Study 04/17/25 18:09 IMPRESSION: 1. No deep venous thrombosis of major veins of both lower extremities.. Chest/Abdomen/Pelvis CTA 04/17/25 18:39 IMPRESSION: 1. No evidence of pulmonary embolus. 2. Cardiomegaly with significant congestive heart failure. Large right pleural effusion. Significant ascites. Labs Labs: Laboratory Results - last 24 hr 04/18/25 04/18/25 04/19/25 05:13 16:48 10:20 WBC 3.1 L RBC 4.13 L Hgb 13.7 L Hct 40.3 L MCV 97.6 MCH 33.2 MCHC 34.0 RDW 12.7 Plt Count 277 MPV 10.5 H Immature Gran % (Auto) 0.0 Neut % (Auto) 43.5 L Lymph % (Auto) 47.3 H [place] % (Auto) 5.1 Eos % (Auto) 3.5 Baso % (Auto) 0.6 Lymph # (Auto) 1.48 [place] # (Auto) 0.2 Eos # (Auto) 0.1 Baso # (Auto) 0.0 Abs Immat Gran (auto) 0.00 Absolute Neuts (auto) 1.4 Absolute Nucleated RBC 0.000 Nucleated RBC % 0.0 Sodium 135 L Potassium 3.5 Chloride 102 Carbon Dioxide 25 Anion Gap 8 BUN 22 H Creatinine 1.36 H Estim Creat Clear Calc 71 Estimated GFR > 60 Glucose 187 H Calcium 9.1 Magnesium 1.7 Total Bilirubin 1.1 AST 49 ALT 34 Alkaline Phosphatase 138 H C-Reactive Protein < 0.5 Total Protein 6.5 Albumin 3.8 CMV IgG Ab 4.70 H CMV IgM Ab <30.0 Quality VTE Prophylaxis VTE prophylaxis: pharmacologic ordered (Lovenox 40 mg subQ daily.)
[2025-04-19 12:08] LABS: EBV Nuclear Antigen Ab, IgG 150.0 U/mL (0.0-17.9)
[2025-04-20] VITALS: PULSE 115
[2025-04-20 03:23] VITALS: BP 112/89; PULSE 99; RESP 18; TEMP 36.5; O2SAT 98
[2025-04-20 04:00] VITALS: PULSE 102
[2025-04-20 05:18] LABS: Hematocrit 37.3 % (42.0-52.0); Hemoglobin 12.4 g/dL (14.0-18.0); Immature Granulocyte Percent A 0.3 % (0-0.5); Lymphocytes Absolute Auto 1.72 K/mm3 (0.9-3.2); Mean Corpuscular HGB Conc 33.2 g/dl (32-36); Mean Corpuscular Hemoglobin 32.6 pg (26-34); Mean Corpuscular Volume 98.2 fl (80-100); Nucleated Red Blood Cells Absolute Auto 0.000 K/mm3 (0.0-0.012); Nucleated Red Blood Cells Perc 0.0 % (0.0-0.2); Platelet Count Result 259 k/mm3 (150-375); Red Blood Count 3.80 M/mm3 (4.6-6.20); White Blood Count 3.1 K/mm3 (4.5-10.0)
[2025-04-20 05:39] LABS: Alanine Aminotransferase 27 U/L (6-50); Albumin Level 3.4 g/dL (3.5-5.1); Alkaline Phosphatase 128 U/L (38-126); Anion Gap 5 mmol/L (4-12); Aspartate Amino Transferase 40 U/L (17-59); Bilirubin,Total 0.8 mg/dL (0.2-1.3); Blood Urea Nitrogen 22 mg/dL (9-20); Calcium 8.9 mg/dL (8.4-10.2); Carbon Dioxide 28 mmol/L (22-30); Chloride 102 mmol/L (98-107); Estimated CRCL calculation 73 ml/min; Estimated Glomerular Filt Rate > 60; Glucose 115 mg/dL (65-110); Potassium 3.6 mmol/L (3.4-5.0); Sodium 135 mmol/L (137-145); Total Protein 6.1 g/dL (6.3-8.2)
[2025-04-20 08:00] VITALS: PULSE 115
--- NOTE | 2025-04-20 09:10 | P.DS_ITS ---
DS: Admitting Diagnosis Discharge Date 04/20/2025 Admitting Diagnosis New CHF, LIZETTE DS: Discharge Diagnosis Discharge Diagnosis (1) New onset of congestive heart failure: Code(s): I50.9 - Heart failure, unspecified Status: Acute (2) Acute kidney injury: Code(s): N17.9 - Acute kidney failure, unspecified Status: Acute (3) Hypertension: Code(s): I10 - Essential (primary) hypertension Status: Acute (4) Mononucleosis: Code(s): B27.90 - Infectious mononucleosis, unspecified without complication Status: Acute DS: Summary Hospital Course Reason for hospitalization: Leg swelling and shortness of breath for a couple of days Hospital Course: The patient is a 29-year-old man with a history of anxiety and mild alcohol use disorder who presented with several days of progressive shortness of breath and bilateral lower extremity swelling, following a preceding viral-like illness weeks earlier. Initial evaluation revealed sinus tachycardia, cardiomegaly on chest X-ray, markedly elevated NT?proBNP, mild troponin elevation with a flat trend, leukopenia with lymphocyte predominance, acute kidney injury, and mild hyperbilirubinemia. CTA of the chest, abdomen, and pelvis showed cardiomegaly with significant congestive heart failure physiology, including a large right pleural effusion, ascites, and contrast reflux into the hepatic veins, without evidence of pulmonary embolism. Transthoracic echocardiogram demonstrated a moderately dilated left ventricle with severely reduced systolic function and an ejection fraction <15%, moderately dilated left atrium, mildly dilated right atrium, and a dilated IVC consistent with elevated right atrial pressure; right ventricular size and function were preserved, and there was no significant valvular disease. The patient was initially treated with IV diuresis with symptomatic improvement and resolution of lower extremity edema and dyspnea. Guideline-directed medical therapy was initiated with losartan and spironolactone, with plans to add metoprolol succinate and empagliflozin once hemodynamically stable. Diuretics were adjusted as renal function was closely monitored; creatinine improved slightly with supportive care. Cardiology was consulted, and given the severity of left ventricular dysfunction, a LifeVest was ordered. The suspected etiology of his nonischemic cardiomyopathy was discussed, including viral myocarditis and alcohol-related cardiomyopathy, with ischemic causes felt to be less likely; outpatient coronary CTA was planned for further evaluation. Infectious workup showed a positive Monospot consistent with acute mononucleosis, managed supportively, with CMV serologies showing prior exposure only. The patient remained hemodynamically stable, reported significant clinical improvement, and tolerated medical therapy well during his observation admission. Plan to discharge on Losartan 25 mg to be taken daily, spironolactone 25 mg to be taken daily, Jardiance 10 mg to be taken daily and Toprol 25 mg to be taken daily. We will have the patient f/u with Cardiology in the outpt setting and he will be set up with LifeVest upon discharge. Status at Discharge Functional status at discharge: independent ambulation Overall status at discharge: patient is back to baseline Time Spent with Patient Time attestation: Total time spent providing and/or coordinating discharge services: 30 Exam Narrative: Weight 69.1 kg BMI 21.2 Const: Other: No acute distress, well-developed well-nourished, appears stated age HENMT: Other: Mucous membranes are tacky, no oral pharyngeal erythema, head is normocephalic atraumatic Eyes: Other: Pupils are equal and reactive, no scleral icterus, no conjunctival pallor Neck: Other: Mild JVD, no significant anterior cervical lymphadenopathy Resp: Other: no increased work of breathing, no wheezes, rhonchi or rales. Cardio: Other: Sinus tachycardia, 2+ bilateral radial and pedal pulses, mild JVD, no murmur GI: Other: Soft, nontender, nondistended, positive bowel sounds Skin: Other: No jaundice, no pallor no petechiae Neuro: Other: Alert oriented, speech is clear, no facial asymmetry, no localizing neurologic deficits noted during the course of conversation Extrem: Other: Trace edema to bilateral feet and ankles, no cyanosis, no clubbing Psych: Other: Appropriate mood and affect, pleasant and cooperative, judgment and insight intact DS: Data Data Completed and Pending Labs on day of discharge: Labs from last 24 hours 04/20/25 04/19/25 04/18/25 05:05 10:20 05:13 WBC 3.1 L 3.1 L RBC 3.80 L 4.13 L Hgb 12.4 L 13.7 L Hct 37.3 L 40.3 L MCV 98.2 97.6 MCH 32.6 33.2 MCHC 33.2 34.0 RDW 12.4 12.7 Plt Count 259 277 MPV 10.6 H 10.5 H Immature Gran % (Auto) 0.3 0.0 Neut % (Auto) 33.0 L 43.5 L Lymph % (Auto) 55.7 H 47.3 H Parker % (Auto) 6.5 5.1 Eos % (Auto) 3.9 3.5 Baso % (Auto) 0.6 0.6 Lymph # (Auto) 1.72 1.48 Parker # (Auto) 0.2 0.2 Eos # (Auto) 0.1 0.1 Baso # (Auto) 0.0 0.0 Abs Immat Gran (auto) 0.01 0.00 Absolute Neuts (auto) 1.0 L 1.4 Absolute Nucleated RBC 0.000 0.000 Nucleated RBC % 0.0 0.0 Sodium 135 L 135 L Potassium 3.6 3.5 Chloride 102 102 Carbon Dioxide 28 25 Anion Gap 5 8 BUN 22 H 22 H Creatinine 1.35 H 1.36 H Estim Creat Clear Calc 73 71 Estimated GFR > 60 > 60 Glucose 115 H 187 H Calcium 8.9 9.1 Total Bilirubin 0.8 1.1 AST 40 49 ALT 27 34 Alkaline Phosphatase 128 H 138 H Total Protein 6.1 L 6.5 Albumin 3.4 L 3.8 EBV Capsid Ag IgG Ab >600.0 H EBV Capsid Ag IgM Ab <36.0 EBV Nuclear Antigen Ab 150.0 H EBV Interpretation Comment Discharge Plan Discharge Attending physician on discharge: Fox Alves Consulting providers: Jeb Elias; Jessica Chaves; Kuldeep Trevizo Discharging Clinician: Kuldeep Trevizo Anticipated Discharge Date/Time: 04/20/25 09:01 Patient Disposition: Home Activity: as tolerated Diet: regular Discharge Instructions: Discharge disposition: Home Take medications as prescribed. You will be discharged on losartan 25 mg to be taken daily, spironolactone 25 mg to be taken daily, Jardiance 10 mg to be taken daily and Toprol 25 mg to be taken daily. Monitor blood pressures Take caution while standing, rising, or moving Change positions slowly taking a break between each position change If you standing feel dizzy sit back down and take a break Encouraged to continue with yearly vaccinations Return to the emergency department if you develop sudden shortness of breath, chest pain, nausea, vomiting, upset stomach or intractable diarrhea Return to the emergency department if you develop fever greater than 101.5 Follow-up with the primary care physician within 1-2 weeks Thank you for [facility] for your healthcare needs Patient Instructions: Antibiotic Form Patient Language: Guinean Stand Alone Forms: General Discharge Information Follow-up/Referrals: PHYSICIAN,QUALITY ASSURANCE TECHNICIAN [Primary Care Provider, Internal Medicine] Jessica Chaves MD [Physician, Cardiology] Discharge Medications: New spironolactone 25 mg Tablet 25 mg PO QAM Qty: 30 0RF losartan 25 mg Tablet 25 mg PO DAILY Qty: 30 0RF metoprolol succinate [Toprol XL] 25 mg Tablet Extended Release 24 Hr 25 mg PO QAM Qty: 30 0RF Jardiance 10 mg tablet 10 mg PO DAILY Qty: 30 0RF Discontinued valacyclovir 500 mg tablet 500 mg PO DAILY Date of admission: 04/19/25 09:44 Primary Care Provider: PHYSICIAN,QUALITY ASSURANCE TECHNICIAN Admitting Provider: Sonam Shine Attending physician on admission: Sonam Shine Condition: Serious Quality VTE Prophylaxis VTE prophylaxis: pharmacologic ordered (Lovenox 40 mg subQ daily.)
[2025-04-20] MEDS: ENOXAPARIN 40 MG/0.4 ML SYRINGE SUB-Q (09:13)
[2025-04-20] MEDS: LOSARTAN POTASSIUM 25 MG TABLET PO (09:13)
[2025-04-20 09:14] VITALS: PULSE 114
[2025-04-20] MEDS: METOPROLOL SUCCINATE EXT REL 25 MG TABCR PO (09:14)
[2025-04-20] MEDS: SPIRONOLACTONE 25 MG TABLET PO (09:14)
--- NOTE | 2025-04-20 11:39 | PM.PNCARD ---
Progress Note: A&P Assessment and Plan (1) Alcohol use disorder, mild, abuse: Code(s): F10.10 - Alcohol abuse, uncomplicated Status: Acute (2) New onset of congestive heart failure: Code(s): I50.9 - Heart failure, unspecified Status: Acute (3) Acute kidney injury: Code(s): N17.9 - Acute kidney failure, unspecified Status: Acute Plan 29-year-old man presented with shortness of breath and lower extremity swelling Acute decompensated systolic heart failure -will discontinue Lasix -started on losartan 25 mg p.o. daily and spironolactone 25 mg p.o. daily -add Toprol XL 25 mg daily to begin. Can consider Jardiance 10 mg daily on OP basis. -once again we discussed the etiologies of viral, nonischemic including alcohol and arrhythmia secondary to alcohol, and unlikely etiology of ischemic -we also initiated discussion on LifeVest as well as ischemic evaluation describing both coronary CTA as well as invasive left heart catheterization and ultimately the patient agreed to proceed for with coronary CTA at outpatient setting -lifevest will be placed on OP basis as patient would like to go home at this time Acute renal injury -unknown baseline -recommend to repeat blood work and trend the creatinine -it is stable at this time Alcohol abuse -discussed cutting down on alcohol consumption given his diagnosis of acute decompensated heart failure to which he expressed understanding and agreed Stable from CV standpoint. will plan for OP follow up Subjective Date/time seen: 04/20/25 0930 Interval history: 04/20/25: patient sitting up in bed. He is feeling much improved and would like to go home. He denies any chest pain or pressure. No dizziness or palpitations. Review of Systems Review of Systems: All systems reviewed & are unremarkable except as noted in HPI and below Exam Const: General: comfortable and no acute distress Neck: Neck: supple and no JVD Resp: Effort & Inspection: normal respiratory effort Auscultation: clear to auscultation bilaterally Cardio: Rate: regular rate Rhythm: regular rhythm Heart sounds: no gallops, no murmurs and no rubs Neuro: Speech: normal speech Extrem: General: normal to inspection and no edema Psych: Mental Status: mental status grossly normal Objective Data Vital Signs Vital Signs: Vital Signs - 24 hr 04/19/25 12:00 04/19/25 14:00 04/19/25 15:38 Temperature 36.7 C Pulse Rate 126 H 116 H 139 H Respiratory Rate 20 Blood Pressure 116/77 Pulse Oximetry 95 04/19/25 16:03 04/19/25 20:00 04/19/25 20:07 Temperature 36.5 C Pulse Rate 120 H 118 H 122 H Respiratory Rate 18 Blood Pressure 126/94 H Pulse Oximetry 100 04/20/25 00:00 04/20/25 03:23 04/20/25 04:00 Temperature 36.5 C Pulse Rate 115 H 99 102 H Respiratory Rate 18 Blood Pressure 112/89 Pulse Oximetry 98 04/20/25 08:00 04/20/25 09:14 Temperature Pulse Rate 115 H 114 H Respiratory Rate Blood Pressure Pulse Oximetry Intake/Output Intake/Output: Intake & Output 04/17/25 04/18/25 04/19/25 04/20/25 23:59 23:59 23:59 23:59 Intake Total 1100 2400 730 Balance 1100 2400 730 Meds/Results Radiology Results: ITS Impressions Chest X-Ray 04/17/25 17:40 IMPRESSION: 1. No acute findings of the lungs. Cardiomegaly. Venous Doppler Study 04/17/25 18:09 IMPRESSION: 1. No deep venous thrombosis of major veins of both lower extremities.. Chest/Abdomen/Pelvis CTA 04/17/25 18:39 IMPRESSION: 1. No evidence of pulmonary embolus. 2. Cardiomegaly with significant congestive heart failure. Large right pleural effusion. Significant ascites. Labs Labs: Laboratory Results - last 24 hr 04/18/25 04/20/25 05:13 05:05 WBC 3.1 L RBC 3.80 L Hgb 12.4 L Hct 37.3 L MCV 98.2 MCH 32.6 MCHC 33.2 RDW 12.4 Plt Count 259 MPV 10.6 H Immature Gran % (Auto) 0.3 Neut % (Auto) 33.0 L Lymph % (Auto) 55.7 H Overton % (Auto) 6.5 Eos % (Auto) 3.9 Baso % (Auto) 0.6 Lymph # (Auto) 1.72 [place] # (Auto) 0.2 Eos # (Auto) 0.1 Baso # (Auto) 0.0 Abs Immat Gran (auto) 0.01 Absolute Neuts (auto) 1.0 L Absolute Nucleated RBC 0.000 Nucleated RBC % 0.0 Sodium 135 L Potassium 3.6 Chloride 102 Carbon Dioxide 28 Anion Gap 5 BUN 22 H Creatinine 1.35 H Estim Creat Clear Calc 73 Estimated GFR > 60 Glucose 115 H Calcium 8.9 Total Bilirubin 0.8 AST 40 ALT 27 Alkaline Phosphatase 128 H Total Protein 6.1 L Albumin 3.4 L EBV Capsid Ag IgG Ab >600.0 H EBV Capsid Ag IgM Ab <36.0 EBV Nuclear Antigen Ab 150.0 H EBV Interpretation Comment
== END 2025-04-20 11:00 | disposition home or self-care (01) | DRG 194 ==
LOC: ANHED 16:53 → ANH3MEDSUR 21:38 → ANH2MED 22:10
PROVIDERS: Internal Medicine; Admitting Provider Internal Medicine; Emergency Provider Physician Assistant; Visit Provider Physician Assistant
DX: I11.0 Hypertensive heart disease with heart failure (principal); I50.21 Acute systolic (congestive) heart failure; R18.8 Other ascites; D72.819 Decreased white blood cell count, unspecified; N17.9 Acute kidney failure, unspecified; I42.6 Alcoholic cardiomyopathy; E86.0 Dehydration; B27.90 Infectious mononucleosis, unspecified without complication; F10.10 Alcohol abuse, uncomplicated; R16.2 Hepatomegaly with splenomegaly, not elsewhere classified; Z20.822 Contact with and (suspected) exposure to COVID-19; Z87.891 Personal history of nicotine dependence
CPT/HCPCS: 36415; 71046; 71275; 74177; 80053; 80307; 83735; 83880; 84484; 85025; 85610; 85652; 85730; 86140; 86308; 86644; 86645; 86664; 86665; 86703; 87636; 93005; 93306; 93970; 96372; 96374; 99285; A9270; G0378; G0432; J1650; J1938; Q9967